=== PATIENT | female | born 1935 | race Caucasian/White ===

== ENCOUNTER 2017-06-13 14:08 | Inpatient (IN) ==
[2017-06-13] MEDS ORDERED: ONDANSETRON 4 MG/2 ML VIAL IV PRN (14:27)
[2017-06-13] MEDS ORDERED: ACETAMINOPHEN 325 MG TABLET PO PRN (14:27)
[2017-06-13] MEDS ORDERED: MORPHINE 2 MG/1 ML SYRINGE IV PRN (14:27)
[2017-06-13] MEDS ORDERED: NALOXONE 0.4 MG/ML VIAL IV PRN (14:27)
[2017-06-13] MEDS ORDERED: ENOXAPARIN 40 MG/0.4 ML SYRINGE SUBCUT SCH (14:30)
[2017-06-13] MEDS ORDERED: NITROGLYCERIN SL 0.4 MG TABLET SL PRN (14:32)
[2017-06-13 16:17] LABS: Basophils % 0.4 % (0.0-0.8); Eosinophils # 0.1 10*3/uL (0.0-0.87); Eosinophils % 1.9 % (0.00-10.9); Hematocrit 20.5 VOL% (35.7-47.0); Immature Granulocytes % 17.4 %; Immature Granulocytes Absolute 0.45 #; Lymphocytes # 1.1 10*3/uL (1.4-4.0); Lymphocytes % 42.2 % (21.3-54.2); Mean Corpuscular HGB Conc 34.1 GM/DL (32-36); Mean Corpuscular Hemoglobin 34 PG (27-34); Mean Platelet Volume 12.9 FL (9.6-12.0); Monocytes # 0.1 10*3/uL (0.11-0.8); Monocytes % 2.3 % (1.7-12.7); NRBC # 0.06 10*3/uL; Neutrophils # 0.9 10*3/uL (1.4-7.4); Neutrophils % 35.8 % (38.7-73.9); Platelet Count 50 T/CUMM (130-400); Red Blood Count 2.07 MC/CUMM (3.8-5.5); Red Cell Distribution Width 16.8 % (9.3-17.3); White Blood Count 2.6 T/CUMM (4-12)
[2017-06-13] MEDS: SODIUM CHLORIDE 0.45% 1,000 ML IV SCH (16:25)
[2017-06-13 16:44] LABS: Albumin 3.6 G/DL (3.4-5.0); Bilirubin,Total 0.9 MG/DL (0.2-1.0); Magnesium 2.3 MG/DL (1.8-2.4); Osmolality,Calculated 276.7 MOS/KG (273-304); Total Protein 6.6 G/DL (6.4-8.3)
[2017-06-13 16:46] LABS: Troponin I Only 0.019 NG/ML (0.00-0.045)
[2017-06-13 16:52] LABS: Platelet Estimate Decreased
[2017-06-13 16:54] LABS: Apearance,Urine CLOUDY (Clear); Bacteria,Urine Occasional /HPF (Few); Bilirubin,Urine Negative (Negative); Blood, Urine Negative (Negative); Glucose,Urine (UA) Negative (Negative); Ketones,Urine Negative (Negative); Nitrite,Urine Negative (Negative); Protein,Urine Negative; Squamous Epithelial Cell,Urine Occasional /HPF (0-10); Urine Color Yellow (Yellow); Urine Specific Gravity 1.009 (1.001-1.035)
[2017-06-13] MEDS ORDERED: SODIUM CHLORIDE 0.9% 250 ML IV PRN (17:37)
--- NOTE | 2017-06-13 17:46 | Family Practice History&Phys ---
Assessment and Plan (1) Symptomatic anemia Status: Acute Assessment and plan: 06/13/2017: IV Protonix has been ordered. Stool guaiac has been ordered. Patient will be typed and matched for 2 units of blood will follow for any further bleeding. GI will be consulted. Anemia studies were pending. Current Visit: Yes (2) Chest pain Status: Acute Assessment and plan: 06/13/2017: The certainly appears atypical and may be related directly or indirectly to her anemia. Cardiac isoenzymes and repeat EKG have been ordered. Current Visit: Yes History of Present Illness Chief complaint: Chest pain and weakness History of present illness: Ms. Neff is a 81 year old female Patient 81-year-old white female was in the office the day of admission with increasing episodes of weakness and chest pain. Patient states these episodes are occurring fairly frequently and she becomes diaphoretic, pale and she develops nausea and left shoulder upper chest pain. Patient says she has had multiple episodes of this since its onset 3 days ago. Patient was noted to be quite pale in the office but she denied seeing any blood in her stools or having any melena. She denies any dyspepsia or dysphagia. She does take Mobic for her arthritic complaints. Patient was found to have a hemoglobin of 7. Patient was admitted for further evaluation and I am certainly concerned about the potential of her having coronary artery disease as well. Home Medications Medication Instructions Recorded Confirmed Type Donepezil [Aricept] 5 mg PO BEDTIME 07/06/15 11/10/16 History Omeprazole 20 mg PO DAILY 07/06/15 11/10/16 History Pitavastatin [Livalo] 2 mg PO DAILY 07/06/15 11/10/16 History Escitalopram [Lexapro] 20 mg PO DAILY 09/16/16 11/10/16 History Tolterodine [Detrol] 2 mg PO BID 09/16/16 11/10/16 History levETIRAcetam [Levetiracetam] 500 mg PO BID 09/16/16 11/10/16 History Calcium Carbonate/Vitamin D3 1 each PO DAILY 09/28/16 11/10/16 History [Caltrate 600 Plus D3 Tablet] Docusate Sodium Cap [Colace Cap] 100 mg PO BID 09/28/16 11/10/16 History Vitamin E 400 unit PO DAILY 09/28/16 11/10/16 History Aspirin [Ecotrin] 81 mg PO DAILY 10/28/16 11/10/16 History Meloxicam [Mobic] 1 tablet PO DAILY 10/28/16 11/10/16 History Polyethylene Glycol Powder 17 gm PO DAILY 10/28/16 11/10/16 History [Miralax] Allergies Allergy/AdvReac Type Severity Reaction Status Date / Time codeine Allergy Intermediate RASH Verified 10/28/16 11:13 adhesive tape AdvReac Intermediate RASH Verified 10/28/16 11:13 latex AdvReac Intermediate BLISTER Verified 06/13/17 15:24 - Constitutional Constitutional: Present: chills, fatigue, weakness. Absent: fever(s) - EENT Eyes: Absent: blurry vision, loss of vision Ears: Absent: decreased hearing, ear pain Nose, mouth and throat: Absent: hoarseness, sinus pressure, sore throat - Cardiovascular Cardiovascular: Present: chest pain at rest, diaphoresis, dyspnea, dyspnea on exertion. Absent: orthopnea, palpitations, PND - Respiratory Respiratory: Present: dyspnea, dyspnea on exertion. Absent: cough, wheezing - Gastrointestinal Gastrointestinal: Present: nausea. Absent: abdominal pain, dyspepsia, dysphagia , hematemesis, hematochezia, melena, vomiting - Genitourinary Genitourinary: Absent: dysuria, urinary frequency, urinary hesitancy - Musculoskeletal Musculoskeletal: Present: back pain (Chronic). Absent: arthralgias - Neurological Neurological: Absent: abnormal gait, confusion, dizziness, focal weakness, numbness, paresthesias - Psychiatric Psychiatric: Present: depression. Absent: anxiety, confusion - Endocrine Endocrine: Present: fatigue. Absent: polydipsia, polyphagia - Hematologic/Lymphatic Hematologic/Lymphatic: Absent: easy bleeding, easy bruising Medical,Surgical,& Family Hx - Medical History Cardio: History of: CAD, Hypertension (STATES NO MEDS O DIAGNOSIS OF IT) Psychological: History of: Depression Neurology: History of: Dementia, Parkinson's Disease, Seizures (no seizure in 4 years) HEENT: History of: Ear Problem, Eye Problem (GLASSES), Dental Problems (PARTIAL) Endocrine: History of: Dyslipidemia, Thyroid Disorder (Daughter denies) Genitourinary: History of: Bladder Problem (INCONTIENCE WEARS DIAPER), Recurring Urinary Tract Infections Gastrointestinal: History of: GERD Musculoskeletal: History of: Musculoskeletal Problems (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) - Surgical History HEENT Surgeries: Surgical HX of: Eye Surgery (CATARACTS) Abdominal Surgeries: Surgical HX of: Colonoscopy, EGD Reproductive Surgeries: Surgical HX of;: Genitourinary Surgery (OVERACTIVE BLADDER) Orthopedic Surgeries: Surgical HX of;: Orthopedic Surgery (ORIF left femur FX RIGHT HUMERUS), Total Hip Replacement (R hip replaced) - Family History Family History: Reports;: Family Diabetes (MOM DAUGHTER), Family Stroke (BROTHER ) Comment Only: Family Heart Disease (PARENTS) - Social History Smoking Status: Never smoker Frequency of Alcohol Use: None Type of Drug Use: None Exam - Constitutional Vitals: Period Temp Pulse Resp BP Sys/Carson Pulse Ox Last 24 Hr 97.3 F 71 18 152/35 99 Exam: General: Objective patient is a well-developed white female was able to give a good history. Patient was noted to be quite pale in color HEENT: Pupils equal and reactive to light. Patent nares and airway, the conjunctiva and her mucous membranes are pale. Neck: No meningismus, adenopathy, thyromegaly. There are no auscultated carotid bruits. Cardiovascular: Regular rhythm. No murmurs or gallops. EKG in the office showed normal sinus rhythm with no acute ST elevation or depression. Chest: Clear to auscultation without rales rhonchi wheezes. Abdomen: Soft nontender to palpation No masses, rebound, guarding or tenderness. Neuro: Cranial nerves intact and DTRs and strength symmetric in all extremities. Dermatologic: No evidence of abnormal lesions or masses. Musculoskeletal: There is no joint swelling or tenderness or deformity. Extremities: There is no calf swelling or tenderness. Results - Labs CBC & BMP: 06/13/17 15:53 06/13/17 15:53 Lab Results: I have reviewed the past 24 hour labs - EKG EKG results: sinus rhythm
[2017-06-13] MEDS: SODIUM CHLORIDE 0.9% 1,000 ML IV SCH (18:05)
[2017-06-13 19:00] LABS: Troponin I Only 0.023 NG/ML (0.00-0.045)
--- NOTE | 2017-06-13 19:03 | XRay Report ---
Single view the chest. Indication: Shortness of breath. The heart is normal in size. The pulmonary vasculature is normal. The lung ybarra are clear. No pneumothorax or pleural effusion. Orthopedic hardware stabilizing a healed fracture of the right proximal humerus. Impression: No acute cardiopulmonary abnormality is seen. PROCEDURE INTERPRETED AT [facility] DEPARTMENT OF RADIOLOGY Final Report Signed by: Dr. Ruth Xie
[2017-06-13 19:34] LABS: Hematocrit 18.3 VOL% (35.7-47.0)
[2017-06-13 19:36] LABS: Hemoglobin 6.2 GM/DL (12.0-16.0)
[2017-06-13 19:52] LABS: Troponin I Only 0.022 NG/ML (0.00-0.045)
[2017-06-13 20:01] LABS: Folate 17.1 NG/ML (5.4-24.0)
[2017-06-13] MEDS: PANTOPRAZOLE 40 MG VIAL IV SCH (21:51)
[2017-06-13] MEDS: DONEPEZIL 5 MG TABLET PO SCH (21:51)
[2017-06-13] MEDS: levETIRAcetam 500 MG TABLET PO SCH (21:51)
[2017-06-13] MEDS: DOCUSATE SODIUM 100 MG CAPSULE PO SCH (21:51)
[2017-06-14 04:57] LABS: Basophils % 0.3 % (0.0-0.8); Eosinophils % 0.9 % (0.00-10.9); Hematocrit 27.7 VOL% (35.7-47.0); Hemoglobin 9.4 GM/DL (12.0-16.0); Immature Granulocytes % 11.3 %; Immature Granulocytes Absolute 0.37 #; Lymphocytes # 1.9 10*3/uL (1.4-4.0); Lymphocytes % 59.1 % (21.3-54.2); Mean Corpuscular HGB Conc 33.9 GM/DL (32-36); Mean Corpuscular Hemoglobin 31 PG (27-34); Mean Corpuscular Volume 90.5 FL (87-102); Mean Platelet Volume 12.2 FL (9.6-12.0); Monocytes # 0.1 10*3/uL (0.11-0.8); Monocytes % 3.4 % (1.7-12.7); NRBC # 0.06 10*3/uL; Neutrophils # 0.8 10*3/uL (1.4-7.4); Red Blood Count 3.06 MC/CUMM (3.8-5.5); Red Cell Distribution Width 17.3 % (9.3-17.3); White Blood Count 3.3 T/CUMM (4-12)
[2017-06-14 05:01] LABS: Platelet Count 35 T/CUMM (130-400)
[2017-06-14 05:27] LABS: Risk Ratio 3.6; VLDL CHOLESTEROL 13.4 MG/DL
[2017-06-14 05:34] LABS: Atypical Lymphocytes Few; Eosinophils 6 % (0-10); Lymphocytes 69 % (20-55); Nucleated Red Blood Cells 6 (0-5); Segmented Neutrophils 24 % (50-85); Total Cells Counted 100
[2017-06-14 05:35] LABS: Hypochromasia 1+; Microcytosis 1+; Ovalocytes Slight; Polychromasia Slight
[2017-06-14 05:36] LABS: Platelet Estimate Decreased
--- NOTE | 2017-06-14 08:25 | Family Practice Progress Note ---
Family Practice - PN: Subj Interval history: Patient states is feeling better this morning. Her hematocrit dropped 16.8% last night and it is back up to 27% this morning. She has not had a bowel movement this morning. Stool guaiac course is pending. Her LDH, ferritin, iron and iron binding capacity are pending for some reason. Patient denies any abdominal pain or any chest pain this morning. Cardiac isoenzymes are negative. Exam (Progress Note) - Constitutional Vitals: Period Temp Pulse Resp BP Sys/Carson Pulse Ox Last 24 Hr 97.1 F-98.4 F 63-72 16-20 98-152/33-62 97-99 Exam: Objective well-developed white female no acute distress. She is sleeping soundly when I entered the room and certainly has no dyspnea at rest. She is able to give good history and tells me she is feeling better. Her color is certainly much improved. Cardiovascular: Heart rate is regular without murmurs or gallops. Respiratory: Lungs clear to auscultation bilaterally. Abdomen: Abdomen soft and nontender to palpation. Results - Labs CBC & BMP: 06/14/17 04:12 06/13/17 15:53 Lab Results: I have reviewed the past 24 hour labs Assessment and Plan (1) Symptomatic anemia Status: Acute Assessment and plan: 06/13/2017: IV Protonix has been ordered. Stool guaiac has been ordered. Patient will be typed and matched for 2 units of blood will follow for any further bleeding. GI will be consulted. Anemia studies were pending. 06/14/2017: Patient's iron, total iron binding capacity ferritin and LDH are pending. Her platelet counts down to 35,000 this morning I am going to ask hematology to see her due to her pancytopenia. Current Visit: Yes (2) Chest pain Status: Acute Assessment and plan: 06/13/2017: The certainly appears atypical and may be related directly or indirectly to her anemia. Cardiac isoenzymes and repeat EKG have been ordered. 06/14/2017: Patient's chest pain has resolved. Cardiac isoenzymes are negative. Will repeat EKG this morning. Current Visit: Yes
--- NOTE | 2017-06-14 08:32 | EKG Report ---
Stationary ECG Study [facility] Test Date: 06/14/2017 8:16:34 AM Pat Name: ELVIS HOLBROOK Department: Room: 296 Gender: F Toe Former: OMER : 1935 Requested by: Riky Horne Order Number: [id number] Reading MD: RICCO JIMENEZ Intervals [place] Rate: 63 P: 60 GA: 188 QRS: 45 QRSD: 93 T: 42 QT: 435 QTc: 442 Interpretive Statements SINUS RHYTHM at 63 bpm ANTEROSEPTAL MYOCARDIAL INFARCTION, OF INDETERMINATE AGE NST, CONSIDER ISCHEMIA Electronically Signed On 06-17-17 12:19:45 CDT by RICCO JIMENEZ [email or web address]
[2017-06-14 08:46] LABS: % Iron Saturation 54.4 % (18-50)
[2017-06-14] MEDS ORDERED: MELOXICAM 7.5 MG TABLET PO SCH (09:00)
[2017-06-14] MEDS ORDERED: PANTOPRAZOLE 40 MG TABLET PO SCH (09:00)
[2017-06-14] MEDS ORDERED: ASPIRIN EC 81 MG TABLET PO SCH (09:00)
[2017-06-14] MEDS: ESCITALOPRAM 10 MG TABLET PO SCH (09:39)
[2017-06-14] MEDS: levETIRAcetam 500 MG TABLET PO SCH ×2 (09:39→21:51)
[2017-06-14] MEDS: DOCUSATE SODIUM 100 MG CAPSULE PO SCH ×2 (09:40→21:51)
[2017-06-14] MEDS: PANTOPRAZOLE 40 MG VIAL IV SCH ×2 (09:41→21:51)
[2017-06-14 11:27] LABS: Hematocrit 29.2 VOL% (35.7-47.0); Hemoglobin 9.9 GM/DL (12.0-16.0)
--- NOTE | 2017-06-14 11:50 | Gastrointestinal Consult Note ---
Assessment and Plan (1) Symptomatic anemia Status: Acute Assessment and plan: 06/14-Low HH on admission with no prior history of anemia or blood transfusion in the past. No overt signs of bleeding. Iron studies noted as below. Obtain prior endoscopy records from endoscopic clinic. Check stools for occult blood. Monitor H&H and transfuse as necessary. Consideration for endoscopic evaluation unable to proceed until platelet count improves. Plan an addendum to followed by Dr. Gay. Current Visit: Yes History of Present Illness Chief complaint: Anemia, atypical chest pain History of present illness: Ms. Neff is a 81 year old female who was admitted to the hospital on yesterday with complaints of weakness and chest pain. Patient is a fair historian therefore information is also obtained from chart review. Patient has a prior history of CAD, hypertension, depression, dementia, Parkinson's, and GERD. Patient states that approximately 3-4 days ago she had an onset of pain in her epigastric region that seem to occur without any precipitating factors. The pain would come and go multiple times a day and will be associated with nausea at times. She also states at times the pain would radiate into her left shoulder. She denies any other associated symptoms with this. Patient presented to the clinic for a checkup and was found at that time to be pale and had lab work drawn. She was found to have a hemoglobin of 7 and was admitted to the hospital for further workup. Patient states that she has not noticed any melena or hematochezia. She did have a couple of episodes of nausea vomiting but denies any coffee-ground or hematemesis. She states she does take Mobic daily for her arthritis. She has a history of GERD and states that she has noted she has had some regurgitation of food after eating. She denies any dysphagia, increased belching or bloating. She denies any significant weight loss. She does not recall being anemic in the past or having a blood transfusion. Iron studies were done and findings noted with iron of 129, TIBC 237, saturation at 54 and ferritin at 444. Her H&H is now following 2 units of packed red blood cells. She is also noted to have a normal MCV at 90 however she does have a low platelet count at 35. BUN/ creatinine ratio is unremarkable at 13. Cardiac enzymes at this time are negative. Patient denies a prior history of anemia in the past and denies requiring blood transfusions. She states that she has had endoscopy done in the past by Dr. Cardenas and at the endoscopic center. Home Medications Medication Instructions Recorded Confirmed Type Donepezil [Aricept] 5 mg PO BEDTIME 07/06/15 11/10/16 History Omeprazole 20 mg PO DAILY 07/06/15 11/10/16 History Pitavastatin [Livalo] 2 mg PO DAILY 07/06/15 11/10/16 History Escitalopram [Lexapro] 20 mg PO DAILY 09/16/16 11/10/16 History Tolterodine [Detrol] 2 mg PO BID 09/16/16 11/10/16 History levETIRAcetam [Levetiracetam] 500 mg PO BID 09/16/16 11/10/16 History Calcium Carbonate/Vitamin D3 1 each PO DAILY 09/28/16 11/10/16 History [Caltrate 600 Plus D3 Tablet] Docusate Sodium Cap [Colace Cap] 100 mg PO BID 09/28/16 11/10/16 History Vitamin E 400 unit PO DAILY 09/28/16 11/10/16 History Aspirin [Ecotrin] 81 mg PO DAILY 10/28/16 11/10/16 History Meloxicam [Mobic] 1 tablet PO DAILY 10/28/16 11/10/16 History Polyethylene Glycol Powder 17 gm PO DAILY 10/28/16 11/10/16 History [Miralax] Allergies Allergy/AdvReac Type Severity Reaction Status Date / Time codeine Allergy Intermediate RASH Verified 10/28/16 11:13 adhesive tape AdvReac Intermediate RASH Verified 10/28/16 11:13 latex AdvReac Intermediate BLISTER Verified 06/13/17 15:24 Medical,Surgical,& Family Hx - Medical History Cardio: History of: CAD, Hypertension (STATES NO MEDS O DIAGNOSIS OF IT) Psychological: History of: Depression Neurology: History of: Dementia, Parkinson's Disease, Seizures (no seizure in 4 years) HEENT: History of: Ear Problem, Eye Problem (GLASSES), Dental Problems (PARTIAL) Endocrine: History of: Dyslipidemia, Thyroid Disorder (Daughter denies) Genitourinary: History of: Bladder Problem (INCONTIENCE WEARS DIAPER), Recurring Urinary Tract Infections Gastrointestinal: History of: GERD Musculoskeletal: History of: Musculoskeletal Problems (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) - Surgical History HEENT Surgeries: Surgical HX of: Eye Surgery (CATARACTS) Abdominal Surgeries: Surgical HX of: Colonoscopy, EGD Reproductive Surgeries: Surgical HX of;: Genitourinary Surgery (OVERACTIVE BLADDER) Orthopedic Surgeries: Surgical HX of;: Orthopedic Surgery (ORIF left femur FX RIGHT HUMERUS), Total Hip Replacement (R hip replaced) - Family History Family History: Reports;: Family Diabetes (MOM DAUGHTER), Family Stroke (BROTHER ) Comment Only: Family Heart Disease (PARENTS) - Social History Smoking Status: Never smoker Frequency of Alcohol Use: None Type of Drug Use: None 12 point system: reviewed and no additional remarkable complaints except as stated - Constitutional Constitutional: Present: as per HPI - EENT Eyes: Present: as per HPI Ears: Present: as per HPI Nose, mouth and throat: Present: as per HPI - Cardiovascular Cardiovascular: Present: as per HPI, chest pain at rest - Respiratory Respiratory: Present: as per HPI - Gastrointestinal Gastrointestinal: Present: as per HPI, nausea, vomiting - Genitourinary Genitourinary: Present: as per HPI - Musculoskeletal Musculoskeletal: Present: as per HPI - Neurological Neurological: Present: as per HPI - Psychiatric Psychiatric: Present: as per HPI - Endocrine Endocrine: Present: as per HPI - Hematologic/Lymphatic Hematologic/Lymphatic: Present: as per HPI Exam - Constitutional Vitals: Period Temp Pulse Resp BP Sys/Carson Pulse Ox Last 24 Hr 97.1 F-98.4 F 63-72 16-20 98-152/33-62 97-99 General appearance: normal weight, no acute distress - Head Head exam: Present: normal inspection, normocephalic - Eye Eye exam: Present: other (Lids and conjunctivae are unremarkable). Absent: scleral icterus - ENT ENT exam: Present: normal exam, normal oropharynx - Neck Neck exam: Present: normal inspection - Respiratory Respiratory exam: Present: clear to auscultation bilaterally. Absent: rales, rhonchi, wheezes - Cardiovascular Cardiovascular exam: Present: regular rate and rhythm. Absent: diastolic murmur , JVD, systolic murmur - GI/Abdominal GI/Abdominal exam: Present: normal bowel sounds, soft. Absent: ascites, distended, mass, organomegaly, tenderness - Extremities Exam Extremities exam: Present: normal inspection, full ROM - Back Exam Back exam: Present: normal inspection - Neurological Exam Neurological exam: Present: alert, oriented X3 - Psychiatric Psychiatric exam: Present: normal affect, normal mood - Skin Skin exam: Present: normal color, warm, dry Results - Labs CBC & BMP: 06/14/17 11:16 06/13/17 15:53 Lab Results: I have reviewed the past 24 hour labs
[2017-06-14] MEDS: SODIUM CHLORIDE 0.45% 1,000 ML IV SCH (14:03)
--- NOTE | 2017-06-14 16:37 | Cardiology Consult Note ---
Jasvir Jenkins Lesley, MARGARETTE, am scribing for, and in the presence of, Jaylon Pollock MD 16:31. Assessment and Plan - Time spent with patient Time spent with patient: Greater than 30 minutes (Record review, assessment, and documentation) (1) Atypical chest pain Status: Acute Assessment and plan: 1. 81-year-old WF known to me with hypertension, dyslipidemia, trivial coronary artery disease a heart cath in 2006, negative myocardial scan May 2014, presents with 1 month of increasing usually dyspnea on exertion with nausea and vomiting last couple of days found to have severe pancytopenia improved clinically after receiving blood transfusion. 2. She reports nonspecific bilateral shoulder discomfort when she goes to the bathroom, which does not sound like angina "she rubs them for me for a minute and goes away". 3. Patient on Protonix 4. Do not suspect ACS or heart failure, and symptoms are likely related to her severe anemia. 5. Check echocardiogram Current Visit: Yes (2) Symptomatic anemia Status: Acute Assessment and plan: SEE PLAN LISTED BELOW Current Visit: Yes (3) Hyperlipidemia Status: Chronic Assessment and plan: SEE PLAN LISTED BELOW Current Visit: No (4) Hypertension Status: Chronic Assessment and plan: SEE PLAN LISTED BELOW Current Visit: No Qualifiers: Hypertension type: essential hypertension Qualified Code(s): I10 - Essential (primary) hypertension (5) CAD (coronary artery disease) Status: Chronic Assessment and plan: SEE PLAN LISTED BELOW Current Visit: Yes (6) Pancytopenia Status: Acute Assessment and plan: SEE PLAN LISTED BELOW Current Visit: Yes History of Present Illness - Data of Consult Patient: known to practice within the last 3 years Consult date: 06/14/17 Requesting Physician: Grupo Robin Primary care physician: Grupo Robin - Consult Narrative Reason for consult: weakness, chest pain History of present illness: FLIGHT RADIO OFFICER: Dr. Pollock Ms. Neff is a 81 year old female, for progressive episodes of weakness and chest pain. The patient reports that for the last month she is experience nausea vomiting. She denies hematemesis, coffee-ground emesis, melena, and hematochezia. She reports that she has mostly been vomiting semi-digested food. She reports regular bowel movements. She does complain of severe weakness after bowel movement and pain across the top of bilateral shoulders. She reports a "cramping" sensation that is relieved with massage and in time it passes. The patient denies pain to shoulders or chest pain with exertion. She reports that this only occurs during the weak episode after a bowel movement. She denies shortness of breath, orthopnea, PND and does admit snoring. She has never had a sleep study. The patient was admitted to telemetry with anemia, GI was consulted, as well as cardiology. Past medical history significant for CAD, hyperlipidemia, depression, syncope, frequent falls, anxiety, borderline hypertension(denies taking medications). Past surgical history positive for ORIF of right hip, hysterectomy, right carotid endarterectomy, appendectomy, cholecystectomy, tonsillectomy, and adenoidectomy, shoulder surgery. Family history positive for CAD, stroke, diabetes, and cancer. The patient denies personal history of cancer. The patient denies any history of smoking, alcohol use, and illicit drug use. The patient does have a history of left heart cath done in 2006, she denies PCI. Medical records indicate 20% left main stenosis in September 2006. Records indicate negative myocardial scan done May 2014. The patient was seen lying in bed today. She states she does not ambulate due to frequent falls, and uses a wheelchair for mobility. She was admitted with a hemoglobin of 6.2 and a hematocrit of 18.3. She received 2 units of packed red blood cells, and her H&H improved to 9.4 and 27. Leukopenia noted, white blood cells 3000. Thrombocytopenia with platelets 35,000. Creatinine 1.2, glucose 120, lactic acid 2.2. Troponins cycled and remained negative. Lipid profile reveals LDL 110. Urinalysis positive for leukocytes and culture obtained. Despite her severe anemia, vital signs have remained stable without hypotension or tachycardia. EKG reveals sinus rhythm, rate in the 60s-70s. Chest x-ray unremarkable for acute cardiopulmonary abnormality. Stool for occult blood is pending. IMPRESSION/PLAN: 1. ATYPICAL CHEST PAIN - Troponins negative, EKG shows inferior lateral ST depression. 2. ANEMIA - s/p transfusion 2uPRBCs, GI consult pending, abnormal anemia work up. 3. CAD - [facility] 2006 trivial 20% left main stenosis 4. HYPERLIPIDEMIA - continue Livalo, LDL 110. 5. HYPERTENSION - initiate low dose beta cassandra. 6. PANCYTOPENIA - recommend Hematology consult. CC: Grupo Robin MD - Home Medications and Allergies Home Medications: Home Medications Medication Instructions Recorded Confirmed Type Donepezil [Aricept] 5 mg PO BEDTIME 07/06/15 06/14/17 History Omeprazole 20 mg PO DAILY 07/06/15 06/14/17 History Escitalopram [Lexapro] 20 mg PO DAILY 09/16/16 06/14/17 History Tolterodine [Detrol] 2 mg PO BID 09/16/16 06/14/17 History levETIRAcetam [Levetiracetam] 500 mg PO BID 09/16/16 06/14/17 History Calcium Carbonate/Vitamin D3 1 each PO DAILY 09/28/16 06/14/17 History [Caltrate 600 Plus D3 Tablet] Docusate Sodium Cap [Colace Cap] 100 mg PO BID PRN 09/28/16 06/14/17 History Vitamin E 400 unit PO DAILY 09/28/16 06/14/17 History Aspirin [Ecotrin] 81 mg PO DAILY 10/28/16 06/14/17 History Meloxicam [Mobic] 7.5 mg PO DAILY 10/28/16 06/14/17 History Polyethylene Glycol Powder 17 gm PO DAILY PRN 10/28/16 06/14/17 History [Miralax] HYDROcodone/ACETAMIN 7.5-325 7.5 mg PO Q8H PRN 06/14/17 06/14/17 History [[place] 7.5-325] traMADol TAB [Ultram] 50 mg PO TID PRN 06/14/17 06/14/17 History Allergies/Adverse Reactions: Allergies Allergy/AdvReac Type Severity Reaction Status Date / Time codeine Allergy Intermediate RASH Verified 10/28/16 11:13 adhesive tape AdvReac Intermediate RASH Verified 10/28/16 11:13 latex AdvReac Intermediate BLISTER Verified 06/13/17 15:24 - Constitutional Constitutional: Present: frequent falls, weakness. Absent: chills, daytime sleepiness, excessive sweating - EENT Eyes: Absent: blurry vision Nose, mouth and throat: Absent: dysphagia, epistaxis, headache(s) - Cardiovascular Cardiovascular: Present: chest pain at rest, dyspnea on exertion, radiating jaw , neck or arm pain, palpitations. Absent: chest pain with activity, edema, orthopnea, PND - Respiratory Respiratory: Present: dyspnea on exertion, snoring. Absent: cough, dyspnea, hemoptysis - Gastrointestinal Gastrointestinal: Present: heartburn, nausea, vomiting. Absent: abdominal pain , coffee ground emesis, constipation, cramping, diarrhea, dyspepsia, hematemesis , hematochezia, melena - Genitourinary Genitourinary: Absent: difficulty urinating, dysuria, hematuria - Musculoskeletal Musculoskeletal: Present: arthralgias - Neurological Neurological: Present: abnormal gait, frequent falls. Absent: abnormal speech, behavioral changes, confusion - Psychiatric Psychiatric: Absent: anxiety, depression - Endocrine Endocrine: Present: fatigue, polyuria. Absent: cold intolerance, heat intolerance - Hematologic/Lymphatic Hematologic/Lymphatic: Absent: easy bleeding Medical,Surgical,& Family Hx - Medical History Cardio: History of: CAD, Hypertension (STATES NO MEDS O DIAGNOSIS OF IT) Psychological: History of: Depression Neurology: History of: Dementia, Parkinson's Disease, Seizures (no seizure in 4 years) HEENT: History of: Ear Problem, Eye Problem (GLASSES), Dental Problems (PARTIAL) Endocrine: History of: Dyslipidemia, Thyroid Disorder (Daughter denies) Genitourinary: History of: Bladder Problem (INCONTIENCE WE[employer] DIAPER), Recurring Urinary Tract Infections Gastrointestinal: History of: GERD Musculoskeletal: History of: Musculoskeletal Problems (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) - Surgical History Cardiac Surgeries: Sugical HX of: Cardiac Catheterization, Carotid Endarterectomy HEENT Surgeries: Surgical HX of: Eye Surgery (CATARACTS), Tonsilectomy & Adenoidectomy Abdominal Surgeries: Surgical HX of: Cholecystectomy, Colonoscopy, EGD Reproductive Surgeries: Surgical HX of;: Genitourinary Surgery (OVERACTIVE BLADDER), Hysterectomy Orthopedic Surgeries: Surgical HX of;: Orthopedic Surgery (ORIF left femur FX RIGHT HUMERUS), Total Hip Replacement (R hip replaced) - Family History Family History: Reports;: Family Diabetes (MOM DAUGHTER), Family Stroke (BROTHER ) Comment Only: Family Heart Disease (PARENTS) - Social History Smoking Status: Never smoker Frequency of Alcohol Use: None Type of Drug Use: None Lives With:: Children Functional capacity: wheelchair bound Physical Examination Vital Signs Temp Pulse Resp BP Pulse Ox 97.3 F L 71 18 152/35 99 06/13/17 15:24 06/13/17 15:24 06/13/17 15:24 06/13/17 15:24 06/13/17 15:24 Exam: General: Appears well with no apparent distress. Pleasant and cooperative. Appears comfortable. HEENT: PERRL, normocephalic, atraumatic. Mucous membranes moist. No jaundice noted. Conjunctiva moist and clear, sclerae anicteric. Neck: No JVD/HJR, no thyromegaly or lymphadenopathy noted. No carotid bruit appreciated. Cardiac: Regular rate and rhythm. No murmur rub or gallop. PMI is nondisplaced. Lungs: Clear to auscultation without accessory muscle use to assist the respiratory pattern. No oxygen required. Abdomen: Soft, bowel sounds normoactive. Tenderness over mid epigastric region , and nondistended. No abdominal bruit or thrill noted. No masses noted. Musculoskeletal: No fluid collection. Decreased range of motion is noted. Extremities: No clubbing, cyanosis noted. No edema noted. Upper extremity pulses 2+. Lower extremity pulses 2+. Capillary refill less than 3 seconds. Skin: Warm and dry. No unusual lesions or rashes. No skin breakdown appreciated. Neuro: Awake, alert and oriented 3. Moves all extremities well without hemiparesis or paralysis. No essential tremor is appreciated. Result/EKG - Labs CBC & BMP: 06/14/17 11:16 06/13/17 15:53 Lab Results: I have reviewed the past 24 hour labs Labs: Laboratory Results - last 24 hr 06/13/17 06/13/17 06/13/17 15:45 15:53 15:53 WBC 2.6 L RBC 2.07 L Hgb 7.0 L Hct 20.5 L MCV 99.0 MCH 34 MCHC 34.1 RDW 16.8 Plt Count 50 L MPV 12.9 H Neut % (Auto) 35.8 L Lymph % (Auto) 42.2 [place] % (Auto) 2.3 Eos % (Auto) 1.9 Baso % (Auto) 0.4 Neut # (Auto) 0.9 L Lymph # (Auto) 1.1 L [place] # (Auto) 0.1 L Eos # (Auto) 0.1 Baso # (Auto) 0.0 Total Counted Immature Gran % 17.4 Nucleated RBC % 2.3 Immature Gran # 0.45 Segmented Neutrophils Lymphocytes Monocytes Eosinophils Nucleated RBCs Nucleated RBCs # 0.06 Atypical Lymphocytes Platelet Estimate Decreased Immature Plt Fraction 0.0 Polychromasia Hypochromasia Microcytosis Ovalocytes Sodium 138 Potassium 4.0 Chloride 102 Carbon Dioxide 28 Anion Gap 12.0 BUN 16 Creatinine 1.20 H GFR Calculation 43 BUN/Creatinine Ratio 13.00 Glucose 120 H Calculated Osmolality 276.7 Lactic Acid Calcium 9.0 Magnesium 2.3 Iron TIBC % Saturation Ferritin Total Bilirubin 0.90 AST 10 ALT 12 L Alkaline Phosphatase 73 Total Creatine Kinase CK-MB (CK-2) Troponin I B-Natriuretic Peptide Total Protein 6.6 Albumin 3.6 Globulin 3.0 Albumin/Globulin Ratio 1.2 Triglycerides Cholesterol LDL Cholesterol VLDL Cholesterol HDL Cholesterol Heart Disease Risk Ratio Vitamin B12 Folate Urine Color Urine Appearance Urine pH Ur Specific [place] Urine Protein Urine Glucose (UA) Urine Ketones Urine Blood Urine Nitrate Urine Bilirubin Urine Urobilinogen Urine Leukocytes Ur Squamous Epith Cells Urine Bacteria Ur Culture Indicated? Blood Type Cancelled Antibody Screen Cancelled Crossmatch See Detail Blood Bank Comment Cancelled 06/13/17 06/13/17 06/13/17 15:53 15:53 15:53 WBC RBC Hgb Hct MCV MCH MCHC RDW Plt Count MPV Neut % (Auto) Lymph % (Auto) [place] % (Auto) Eos % (Auto) Baso % (Auto) Neut # (Auto) Lymph # (Auto) [place] # (Auto) Eos # (Auto) Baso # (Auto) Total Counted Immature Gran % Nucleated RBC % Immature Gran # Segmented Neutrophils Lymphocytes Monocytes Eosinophils Nucleated RBCs Nucleated RBCs # Atypical Lymphocytes Platelet Estimate Immature Plt Fraction Polychromasia Hypochromasia Microcytosis Ovalocytes Sodium Potassium Chloride Carbon Dioxide Anion Gap BUN Creatinine GFR Calculation BUN/Creatinine Ratio Glucose Calculated Osmolality Lactic Acid Calcium Magnesium Iron TIBC % Saturation Ferritin Total Bilirubin AST ALT Alkaline Phosphatase Total Creatine Kinase 14 L CK-MB (CK-2) < 1.0 Troponin I 0.019 B-Natriuretic Peptide 29 Total Protein Albumin Globulin Albumin/Globulin Ratio Triglycerides Cholesterol LDL Cholesterol VLDL Cholesterol HDL Cholesterol Heart Disease Risk Ratio Vitamin B12 Folate Urine Color Urine Appearance Urine pH Ur Specific [place] Urine Protein Urine Glucose (UA) Urine Ketones Urine Blood Urine Nitrate Urine Bilirubin Urine Urobilinogen Urine Leukocytes Ur Squamous Epith Cells Urine Bacteria Ur Culture Indicated? Blood Type B POSITIVE Antibody Screen Negative Crossmatch Blood Bank Comment 06/13/17 06/13/17 06/13/17 16:36 17:42 17:42 WBC RBC Hgb Hct MCV MCH MCHC RDW Plt Count MPV Neut % (Auto) Lymph % (Auto) [place] % (Auto) Eos % (Auto) Baso % (Auto) Neut # (Auto) Lymph # (Auto) [place] # (Auto) Eos # (Auto) Baso # (Auto) Total Counted Immature Gran % Nucleated RBC % Immature Gran # Segmented Neutrophils Lymphocytes Monocytes Eosinophils Nucleated RBCs Nucleated RBCs # Atypical Lymphocytes Platelet Estimate Immature Plt Fraction Polychromasia Hypochromasia Microcytosis Ovalocytes Sodium Potassium Chloride Carbon Dioxide Anion Gap BUN Creatinine GFR Calculation BUN/Creatinine Ratio Glucose Calculated Osmolality Lactic Acid Calcium Magnesium Iron TIBC % Saturation Ferritin Total Bilirubin AST ALT Alkaline Phosphatase Total Creatine Kinase 15 L CK-MB (CK-2) < 1.0 Troponin I 0.023 B-Natriuretic Peptide Total Protein Albumin Globulin Albumin/Globulin Ratio Triglycerides Cholesterol LDL Cholesterol VLDL Cholesterol HDL Cholesterol Heart Disease Risk Ratio Vitamin B12 376 Folate 17.1 Urine Color Yellow Urine Appearance Cloudy Urine pH 6.0 Ur Specific [place] 1.009 Urine Protein Negative Urine Glucose (UA) Negative Urine Ketones Negative Urine Blood Negative Urine Nitrate Negative Urine Bilirubin Negative Urine Urobilinogen 4.0 H Urine Leukocytes Small H Ur Squamous Epith Cells Occasional Urine Bacteria Occasional Ur Culture Indicated? Results to follow Blood Type Antibody Screen Crossmatch Blood Bank Comment 06/13/17 06/13/17 06/13/17 19:08 19:08 19:08 WBC RBC Hgb 6.2 L* Hct 18.3 L MCV MCH MCHC RDW Plt Count MPV Neut % (Auto) Lymph % (Auto) [place] % (Auto) Eos % (Auto) Baso % (Auto) Neut # (Auto) Lymph # (Auto) [place] # (Auto) Eos # (Auto) Baso # (Auto) Total Counted Immature Gran % Nucleated RBC % Immature Gran # Segmented Neutrophils Lymphocytes Monocytes Eosinophils Nucleated RBCs Nucleated RBCs # Atypical Lymphocytes Platelet Estimate Immature Plt Fraction Polychromasia Hypochromasia Microcytosis Ovalocytes Sodium Potassium Chloride Carbon Dioxide Anion Gap BUN Creatinine GFR Calculation BUN/Creatinine Ratio Glucose Calculated Osmolality Lactic Acid 2.2 H Calcium Magnesium Iron TIBC % Saturation Ferritin Total Bilirubin AST ALT Alkaline Phosphatase Total Creatine Kinase 16 L CK-MB (CK-2) < 1.0 Troponin I 0.022 B-Natriuretic Peptide Total Protein Albumin Globulin Albumin/Globulin Ratio Triglycerides Cholesterol LDL Cholesterol VLDL Cholesterol HDL Cholesterol Heart Disease Risk Ratio Vitamin B12 Folate Urine Color Urine Appearance Urine pH Ur Specific [place] Urine Protein Urine Glucose (UA) Urine Ketones Urine Blood Urine Nitrate Urine Bilirubin Urine Urobilinogen Urine Leukocytes Ur Squamous Epith Cells Urine Bacteria Ur Culture Indicated? Blood Type Antibody Screen Crossmatch Blood Bank Comment 06/14/17 06/14/17 06/14/17 04:01 04:01 04:12 WBC RBC Hgb Hct MCV MCH MCHC RDW Plt Count MPV Neut % (Auto) Lymph % (Auto) [place] % (Auto) Eos % (Auto) Baso % (Auto) Neut # (Auto) Lymph # (Auto) [place] # (Auto) Eos # (Auto) Baso # (Auto) Total Counted Immature Gran % Nucleated RBC % Immature Gran # Segmented Neutrophils Lymphocytes Monocytes Eosinophils Nucleated RBCs Nucleated RBCs # Atypical Lymphocytes Platelet Estimate Immature Plt Fraction Polychromasia Hypochromasia Microcytosis Ovalocytes Sodium Potassium Chloride Carbon Dioxide Anion Gap BUN Creatinine GFR Calculation BUN/Creatinine Ratio Glucose Calculated Osmolality Lactic Acid Calcium Magnesium Iron 129 TIBC 237 L % Saturation 54.4 H Ferritin 444.1 H Total Bilirubin AST ALT Alkaline Phosphatase Total Creatine Kinase CK-MB (CK-2) Troponin I B-Natriuretic Peptide Total Protein Albumin Globulin Albumin/Globulin Ratio Triglycerides 67 Cholesterol 169 LDL Cholesterol 110.0 VLDL Cholesterol 13.4 HDL Cholesterol 47 Heart Disease Risk Ratio 3.60 Vitamin B12 Folate Urine Color Urine Appearance Urine pH Ur Specific [place] Urine Protein Urine Glucose (UA) Urine Ketones Urine Blood Urine Nitrate Urine Bilirubin Urine Urobilinogen Urine Leukocytes Ur Squamous Epith Cells Urine Bacteria Ur Culture Indicated? Blood Type Antibody Screen Crossmatch Blood Bank Comment 06/14/17 04:12 WBC 3.3 L RBC 3.06 L D Hgb 9.4 L D Hct 27.7 L MCV 90.5 MCH 31 MCHC 33.9 RDW 17.3 Plt Count 35 L* D MPV 12.2 H Neut % (Auto) 25.0 L Lymph % (Auto) 59.1 H [place] % (Auto) 3.4 Eos % (Auto) 0.9 Baso % (Auto) 0.3 Neut # (Auto) 0.8 L Lymph # (Auto) 1.9 [place] # (Auto) 0.1 L Eos # (Auto) 0.0 Baso # (Auto) 0.0 Total Counted 100 Immature Gran % 11.3 Nucleated RBC % 1.8 Immature Gran # 0.37 Segmented Neutrophils 24 L Lymphocytes 69 H Monocytes 1 L Eosinophils 6 Nucleated RBCs 6 H Nucleated RBCs # 0.06 Atypical Lymphocytes Few Platelet Estimate Decreased Immature Plt Fraction 0.0 Polychromasia Slight Hypochromasia 1+ Microcytosis 1+ Ovalocytes Slight Sodium Potassium Chloride Carbon Dioxide Anion Gap BUN Creatinine GFR Calculation BUN/Creatinine Ratio Glucose Calculated Osmolality Lactic Acid Calcium Magnesium Iron TIBC % Saturation Ferritin Total Bilirubin AST ALT Alkaline Phosphatase Total Creatine Kinase CK-MB (CK-2) Troponin I B-Natriuretic Peptide Total Protein Albumin Globulin Albumin/Globulin Ratio Triglycerides Cholesterol LDL Cholesterol VLDL Cholesterol HDL Cholesterol Heart Disease Risk Ratio Vitamin B12 Folate Urine Color Urine Appearance Urine pH Ur Specific [place] Urine Protein Urine Glucose (UA) Urine Ketones Urine Blood Urine Nitrate Urine Bilirubin Urine Urobilinogen Urine Leukocytes Ur Squamous Epith Cells Urine Bacteria Ur Culture Indicated? Blood Type Antibody Screen Crossmatch Blood Bank Comment - Diagnostic Findings Procedure: Chest x-ray: report reviewed by me - EKG EKG results: interpreted by me, sinus rhythm Maris Jenkins Randall Scott, MD, personally performed the services described in this documentation, ascribed by Mariia Tay NP in my presence, and it is both accurate and complete [id number] .
[2017-06-14] MEDS: SODIUM CHLORIDE 0.9% 1,000 ML IV SCH (17:05)
--- NOTE | 2017-06-14 17:48 | ECHO Report ---
Suzie Neff Exam Date: 06/14/2017 13:29 Referring Physician: Technologist: flori Tapia ARDMS, RVT Age: 81 Ht (in): 67 Wt (lb): 143 Gender: F Exam Location: [facility], [place] Echo Indications: Chest pain, unspecified, Anemia BP: 139 / 60 HR: 63 Rhythm: Sinus Technical Quality: IMPRESSIONS Normal chamber sizes 1+ concentric LVH Normal LV systolic function with ejection fraction is been be 65% without segmental wall motion normality 1-2+ mitral regurgitation 1+ tricuspid regurgitation with RVSP 40 mmHg plus RAP MEASUREMENTS (Male / Female) Normal Values 2D ECHO LV Diastolic Diameter PLAX 3.8 cm 4.2 - 5.9 / 3.9 - 5.3 cm LV Systolic Diameter PLAX 2.2 cm LV Fractional Shortening PLAX 41.8 % IVS Diastolic Thickness 1.1 cm 0.6 - 1.0 / 0.6 - 0.9 cm LVPW Diastolic Thickness 0.7 cm 0.6 - 1.0 / 0.6 - 0.9 cm RV Internal Dim ED PLAX 3.4 cm Aortic Root Diameter 2.1 cm LA Systolic Diameter LX 3.3 cm 3.0 - 4.0 / 2.7 - 3.8 cm DOPPLER TR Peak Velocity 315.0 cm/s TR Peak Gradient 39.7 mmHg FINDINGS Left Ventricle Normal left ventricular cavity size. Normal left ventricular wall thickness. Left ventricular ejection fraction is estimated at 65%. Right Ventricle The right ventricle is normal in size and function. Right Atrium The right atrium is normal in size. Left Atrium The left atrium is normal in size. Mitral Valve Mitral valve sclerosis. Morphologically normal mitral valve. Moderate mitral valve regurgitation. Aortic Valve Morphologically normal aortic valve without significant sclerosis or stenosis. There is no aortic regurgitation. Tricuspid Valve Morphologically normal tricuspid valve. Mild tricuspid valve regurgitation. Tricuspid regurgitation velocities suggest a PAP of 50 mmHg. Pulmonic Valve Morphologically normal pulmonic valve without significant stenosis. There is no pulmonic regurgitation. Pericardium Normal pericardium without effusion. Aorta Normal ascending aorta dimension. Jaylon Pollock (Electronically Signed) Final Date: 14 June 2017 17:47
[2017-06-14] MEDS: CARVEDILOL 3.125 MG TABLET PO SCH (21:51)
[2017-06-14] MEDS: DONEPEZIL 5 MG TABLET PO SCH (21:51)
[2017-06-15] MEDS: SODIUM CHLORIDE 0.9% 1,000 ML IV SCH ×2 (05:44→19:06)
[2017-06-15 05:53] LABS: Basophils % 0.3 % (0.0-0.8); Eosinophils # 0.1 10*3/uL (0.0-0.87); Eosinophils % 3.3 % (0.00-10.9); Hematocrit 26.2 VOL% (35.7-47.0); Hemoglobin 8.8 GM/DL (12.0-16.0); Immature Granulocytes % 11.5 %; Immature Granulocytes Absolute 0.35 #; Lymphocytes # 1.8 10*3/uL (1.4-4.0); Lymphocytes % 59.2 % (21.3-54.2); Mean Corpuscular HGB Conc 33.6 GM/DL (32-36); Mean Corpuscular Hemoglobin 31 PG (27-34); Mean Corpuscular Volume 91.6 FL (87-102); Mean Platelet Volume 12.1 FL (9.6-12.0); Monocytes # 0.1 10*3/uL (0.11-0.8); Monocytes % 2.3 % (1.7-12.7); NRBC # 0.03 10*3/uL; Neutrophils # 0.7 10*3/uL (1.4-7.4); Neutrophils % 23.4 % (38.7-73.9); Red Blood Count 2.86 MC/CUMM (3.8-5.5); Red Cell Distribution Width 17.1 % (9.3-17.3)
[2017-06-15 06:04] LABS: Platelet Count 37 T/CUMM (130-400)
[2017-06-15 06:30] LABS: Atypical Lymphocytes Few; Band Neutrophils 2 % (0-10); Eosinophils 1 % (0-10); Hypochromasia 1+; Lymphocytes 70 % (20-55); Microcytosis 1+; Ovalocytes Slight; Platelet Estimate Decreased; Segmented Neutrophils 24 % (50-85); Total Cells Counted 100
[2017-06-15] MEDS ORDERED: POLYETHYLENE GLYCOL POWDER 17 GM PACK PO PRN (06:37)
[2017-06-15] MEDS: SODIUM CHLORIDE 0.45% 1,000 ML IV SCH (06:43)
[2017-06-15 06:54] LABS: Albumin 2.9 G/DL (3.4-5.0); Bilirubin,Total 1.2 MG/DL (0.2-1.0); Calcium 8.5 MG/DL (8.5-10.1); Osmolality,Calculated 285.8 MOS/KG (273-304); Total Protein 5.2 G/DL (6.4-8.3)
--- NOTE | 2017-06-15 07:20 | Family Practice Progress Note ---
Family Practice - PN: Subj Interval history: Patient states she is feeling much better this morning had a good night sleep. Her hematocrit this morning is 26.2, platelet count 35,000 and her white count is 3000 with some atypical lymphocytes. Patient has not had any fever or chills and states she is not having any abdominal pain. She did finally provide a stool specimen and it was heme negative. Hematology has been consulted. Exam (Progress Note) - Constitutional Vitals: Period Temp Pulse Resp BP Sys/[place] Pulse Ox Last 24 Hr 97 F-98.4 F 61-67 16-20 133-169/60-71 94-98 Exam: Objective well-developed white female no acute distress. She states she is feeling much better this morning and certainly looks the part. Her color is certainly much improved. Cardiovascular: Heart rate is regular without murmurs or gallops. Respiratory: Lungs clear to auscultation bilaterally. Abdomen: Abdomen soft and nontender to palpation. There is no palpable hepatosplenomegaly or masses. Results - Labs CBC & BMP: 06/15/17 04:24 06/15/17 04:24 Lab Results: I have reviewed the past 24 hour labs Assessment and Plan (1) Symptomatic anemia Status: Acute Assessment and plan: 06/13/2017: IV Protonix has been ordered. Stool guaiac has been ordered. Patient will be typed and matched for 2 units of blood will follow for any further bleeding. GI will be consulted. Anemia studies were pending. 06/14/2017: Patient's iron, total iron binding capacity ferritin and LDH are pending. Her platelet counts down to 35,000 this morning I am going to ask hematology to see her due to her pancytopenia. 06/15/2017: Patient is symptomatically improved with transfusion. Hematology has been consult for further evaluation of her pancytopenia. Current Visit: Yes (2) Chest pain Status: Acute Assessment and plan: 06/13/2017: The certainly appears atypical and may be related directly or indirectly to her anemia. Cardiac isoenzymes and repeat EKG have been ordered. 06/14/2017: Patient's chest pain has resolved. Cardiac isoenzymes are negative. Will repeat EKG this morning. 06/15/2017: Patient's chest pain has resolved. Current Visit: Yes
--- NOTE | 2017-06-15 07:53 | EKG Report ---
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
--- NOTE | 2017-06-15 08:02 | Oncology Consult Note ---
History of Present Illness History of present illness: Ms. Neff is a 81 year old female That I was asked to see because of low blood counts. Today her white cell count is 3000. She has a platelet count of 37,000 with a mean platelet volume is elevated at 12.1. Her absolute neutrophil count is 700. Her hemoglobin is 8.8 and falling. Additional blood tests: JANET: negative. Blood type B+ B12 376, Folate 17.1 Iron 129, TIBC 237 Her home meds that can affect blood counts include: Aricept can cause hemolytic anemia and ecchymoses Omeprazole can cause lupus erythematosus signs and symptoms, blood dyscrasias and leukopenia and thrombocytopenia Lexapro can cause altered platelet function and abnormal bleeding. Levetiracetam can cause leukopenia, neutropenia, pancytopenia, agranulocytosis and thrombocytopenia Mobic can cause anemia and blood dyscrasias. I have ordered a haptoglobin, una and a reticulocyte count. She was admitted with weakness and chest pain. She has a history of mild coronary artery disease and a history of hypertension. Also history of GERD and a history of some type of seizure disorder for which she takes anticonvulsants. Her review of systems is negative for any previous definite blood dyscrasias or bleeding disorders. She has been told she is anemic in the past but she does not recall ever hearing any thing about low platelets or white cells. ROS Gen.: Negative for chronic fever, night sweats or weight loss. Eyes: No history of chronic disease, infections or visual loss. ENT: No history of chronic infections, epistaxis, chronic sore throat Lungs: No history of asthma, emphysema, hemoptysis, chronic pleurisy or long- term or chronic infections Cardiovascular: See present illness. GI: No history of upper or lower GI bleeding, melena, dysphagia, odynophagia, liver disease, gallbladder disease or pancreatic disease. : No history of kidney stones, chronic kidney infections or hematuria. Musculoskeletal: She has a history of mild to moderate arthritis. No history of chronic bone or joint pain or focal muscle atrophy or bone or joint deformity. Neurologic: She is vague about her history of seizures. No history of strokes or focal weakness. Psychiatric: She evidently has some memory problems. No history of chronic psychiatric illness or psychiatric medications. Lymphatic: No history of significant or long-term lymphadenopathy Hematologic: See present illness. Skin: No history of chronic skin infections or rashes or significant skin lesions. Physical examination: General: She appears her stated age. She does not appear to be in any acute distress but I am not certain about the accuracy of her memory. Eyes: Normal lids and conjunctivae. ENT: Her oral mucosa and pharynx are normal. Her hearing appears normal. Teeth are normal. Neck: Her trachea is midline. She has no neck masses. Her thyroid appears normal. Cardiovascular: Her heart rhythm is regular without murmur, gallop or rub. There is no jugular venous distention, clubbing or cyanosis. I see no splinter hemorrhages. Lungs: Her chest moves symmetrically with respiration. I hear no rubs, rales or rhonchi and the expiratory phase of respiration is normal. No chest wall tenderness. Breasts: No breast masses or skin lesions. Normal by inspection. Abdomen: No abdominal masses, organomegaly, distention or hepatomegaly or splenomegaly. No significant tenderness. Musculoskeletal: No severe arthritis or focal muscle atrophy or bone or joint deformity. The tip of the index finger on 1 of her hands is shortened. Neurologic: Cranial nerves II through XII are intact. There are no focal neurologic deficits. Nodes: No cervical, supraclavicular, axillary or submandibular adenopathy. Skin: No petechiae. Nailbeds are normal. I would suspect that this patient's thrombocytopenia is most likely medication related. I have listed the medications that she is taking that need to be considered for discontinuation. I have also listed the additional lab tests to check for possible additional causes of thrombocytopenia and anemia and leukopenia. Also consider CT of the abdomen and pelvis with contrast to look for splenomegaly or possible intra-abdominal abnormalities. Thank you for consulting me. Home Medications Medication Instructions Recorded Confirmed Type Donepezil [Aricept] 5 mg PO BEDTIME 07/06/15 06/14/17 History Omeprazole 20 mg PO DAILY 07/06/15 06/14/17 History Escitalopram [Lexapro] 20 mg PO DAILY 09/16/16 06/14/17 History Tolterodine [Detrol] 2 mg PO BID 09/16/16 06/14/17 History levETIRAcetam [Levetiracetam] 500 mg PO BID 09/16/16 06/14/17 History Calcium Carbonate/Vitamin D3 1 each PO DAILY 09/28/16 06/14/17 History [Caltrate 600 Plus D3 Tablet] Docusate Sodium Cap [Colace Cap] 100 mg PO BID PRN 09/28/16 06/14/17 History Vitamin E 400 unit PO DAILY 09/28/16 06/14/17 History Aspirin [Ecotrin] 81 mg PO DAILY 10/28/16 06/14/17 History Meloxicam [Mobic] 7.5 mg PO DAILY 10/28/16 06/14/17 History Polyethylene Glycol Powder 17 gm PO DAILY PRN 10/28/16 06/14/17 History [Miralax] HYDROcodone/ACETAMIN 7.5-325 7.5 mg PO Q8H PRN 06/14/17 06/14/17 History [Sulphur 7.5-325] traMADol TAB [Ultram] 50 mg PO TID PRN 06/14/17 06/14/17 History Allergies Allergy/AdvReac Type Severity Reaction Status Date / Time codeine Allergy Intermediate RASH Verified 10/28/16 11:13 adhesive tape AdvReac Intermediate RASH Verified 10/28/16 11:13 latex AdvReac Intermediate BLISTER Verified 06/13/17 15:24 Medical,Surgical,& Family Hx - Medical History Cardio: History of: CAD, Hypertension (STATES NO MEDS O DIAGNOSIS OF IT) Psychological: History of: Depression Neurology: History of: Dementia, Parkinson's Disease, Seizures (no seizure in 4 years) HEENT: History of: Ear Problem, Eye Problem (GLASSES), Dental Problems (PARTIAL) Endocrine: History of: Dyslipidemia, Thyroid Disorder (Daughter denies) Genitourinary: History of: Bladder Problem (INCONTIENCE WEARS DIAPER), Recurring Urinary Tract Infections Gastrointestinal: History of: GERD Musculoskeletal: History of: Musculoskeletal Problems (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) - Surgical History Cardiac Surgeries: Sugical HX of: Cardiac Catheterization, Carotid Endarterectomy HEENT Surgeries: Surgical HX of: Carotid Endarterectomy, Eye Surgery (CATARACTS) , Tonsilectomy & Adenoidectomy Abdominal Surgeries: Surgical HX of: Cholecystectomy, Colonoscopy, EGD Reproductive Surgeries: Surgical HX of;: Genitourinary Surgery (OVERACTIVE BLADDER), Hysterectomy Orthopedic Surgeries: Surgical HX of;: Orthopedic Surgery (ORIF left femur FX RIGHT HUMERUS), Total Hip Replacement (R hip replaced) - Family History Family History: Reports;: Family Diabetes (MOM DAUGHTER), Family Stroke (BROTHER ) Comment Only: Family Heart Disease (PARENTS) - Social History Smoking Status: Never smoker Frequency of Alcohol Use: None Type of Drug Use: None Exam - Constitutional Vitals: Period Temp Pulse Resp BP Sys/Carson Pulse Ox Last 24 Hr 97 F-98.4 F 61-67 16-20 133-169/60-71 94-98 Results - Labs CBC & BMP: 06/15/17 04:24 06/15/17 04:24
[2017-06-15] MEDS: PANTOPRAZOLE 40 MG VIAL IV SCH ×2 (08:39→21:49)
[2017-06-15] MEDS ORDERED: ESCITALOPRAM 10 MG TABLET PO SCH (09:00)
[2017-06-15] MEDS: DOCUSATE SODIUM 100 MG CAPSULE PO SCH ×2 (09:20→21:40)
[2017-06-15] MEDS: CARVEDILOL 3.125 MG TABLET PO SCH ×2 (09:20→21:48)
[2017-06-15] MEDS: levETIRAcetam 500 MG TABLET PO SCH (09:20)
[2017-06-15] MEDS: ESCITALOPRAM 10 MG TABLET PO SCH (09:20)
[2017-06-15] MEDS: CALCIUM (CARBONATE)/VITAMIN D 600 MG-400 UNIT TABLET PO SCH (09:20)
[2017-06-15] MEDS: TOLTERODINE 2 MG TABLET PO SCH ×2 (09:23→21:48)
--- NOTE | 2017-06-15 11:39 | Gastrointestinal Progress Note ---
Assessment and Plan (1) Symptomatic anemia Status: Acute Assessment and plan: 06/15-H&H and platelets noted as below. Stools are negative for occult blood. Hematology workup noted. Plan an addendum to follow Dr. Gay. 06/14-Low HH on admission with no prior history of anemia or blood transfusion in the past. No overt signs of bleeding. Iron studies noted as below. Obtain prior endoscopy records from endoscopic clinic. Check stools for occult blood. Monitor H&H and transfuse as necessary. Consideration for endoscopic evaluation unable to proceed until platelet count improves. Plan an addendum to followed by Dr. Gay. Current Visit: Yes Gastroenterology - PN: Subj Interval history: CC: Anemia Patient is seen, awake and alert lying in bed. States she slept very well last night and ate a good breakfast this morning is feeling much better overall. She denies any abdominal pain, nausea or vomiting. Her H&H is noted 05/20 today with platelets 37,000. Her stools are negative for occult blood. Dr. Ferreira is seen and consulted as well as workup has began for her pancytopenia. Patient is noted as well to be on several medications that could contribute to this as well. Abdomen soft, nontender. ROS: Denies shortness of breath or chest pain Exam (Progress Note) - Constitutional Vitals: Period Temp Pulse Resp BP Sys/Carson Pulse Ox Last 24 Hr 96.2 F-98.6 F 59-67 16-20 138-169/60-71 94-98 - Other Additional findings: General appearance: normal weight, no acute distress - Head Head exam: Present: normal inspection, normocephalic - Eye Eye exam: Present: other (Lids and conjunctivae are unremarkable). Absent: scleral icterus - ENT ENT exam: Present: normal exam, normal oropharynx - Neck Neck exam: Present: normal inspection - Respiratory Respiratory exam: Present: clear to auscultation bilaterally. Absent: rales, rhonchi, wheezes - Cardiovascular Cardiovascular exam: Present: regular rate and rhythm. Absent: diastolic murmur , JVD, systolic murmur - GI/Abdominal GI/Abdominal exam: Present: normal bowel sounds, soft. Absent: ascites, distended, mass, organomegaly, tenderness - Extremities Exam Extremities exam: Present: normal inspection, full ROM - Back Exam Back exam: Present: normal inspection - Neurological Exam Neurological exam: Present: alert, oriented X3 - Psychiatric Psychiatric exam: Present: normal affect, normal mood - Skin Skin exam: Present: normal color, warm, dry Results - Labs CBC & BMP: 06/15/17 04:24 06/15/17 04:24 Lab Results: I have reviewed the past 24 hour labs
--- NOTE | 2017-06-15 17:32 | Cardiology Progress Note ---
Jasvir Jenkins Lesley, MARGARETTE, am scribing for, and in the presence of, Jaylon Pollock MD 17:31. Assessment and Plan - Time spent with patient Time spent with patient: Greater than 30 minutes (Record review, assessment, and documentation) (1) Atypical chest pain Status: Resolved Assessment and plan: Initial impression recommendations: 1. 81-year-old WF known to me with hypertension, dyslipidemia, trivial coronary artery disease a heart cath in 2006, negative myocardial scan May 2014, presents with 1 month of increasing usually dyspnea on exertion with nausea and vomiting last couple of days found to have severe pancytopenia improved clinically after receiving blood transfusion. 2. She reports nonspecific bilateral shoulder discomfort when she goes to the bathroom, which does not sound like angina "she rubs them for me for a minute and goes away". 3. Patient on Protonix 4. Do not suspect ACS or heart failure, and symptoms are likely related to her severe anemia. 5. Check echocardiogram June 15, 2017: 1. Ms. Burgess is still fatigued but is doing better clinically 2. Do not suspect acute coronary syndrome or cardiac etiology to her symptoms. 3. Echocardiogram showed normal LV function with EF 65% 4. We will sign off, please reconsult if needed. Current Visit: Yes (2) Symptomatic anemia Status: Acute Assessment and plan: SEE PLAN LISTED BELOW Current Visit: Yes (3) Hyperlipidemia Status: Chronic Assessment and plan: SEE PLAN LISTED BELOW Current Visit: No (4) Hypertension Status: Chronic Assessment and plan: SEE PLAN LISTED BELOW Current Visit: No Qualifiers: Hypertension type: essential hypertension Qualified Code(s): I10 - Essential (primary) hypertension (5) CAD (coronary artery disease) Status: Chronic Assessment and plan: SEE PLAN LISTED BELOW Current Visit: Yes (6) Pancytopenia Status: Acute Assessment and plan: SEE PLAN LISTED BELOW Current Visit: Yes Cardiology - PN: Subj Interval history: REGULATORY COMPLIANCE OFFICER: Dr. Pollock Ms. Neff is a 81 year old female, for progressive episodes of weakness and chest pain. The patient reports that for the last month she is experience nausea vomiting. She denies hematemesis, coffee-ground emesis, melena, and hematochezia. She reports that she has mostly been vomiting semi-digested food. She reports regular bowel movements. She does complain of severe weakness after bowel movement and pain across the top of bilateral shoulders. She reports a "cramping" sensation that is relieved with massage and in time it passes. The patient denies pain to shoulders or chest pain with exertion. She reports that this only occurs during the weak episode after a bowel movement. She denies shortness of breath, orthopnea, PND and does admit snoring. She has never had a sleep study. The patient was admitted to telemetry with anemia, GI was consulted, as well as cardiology. Past medical history significant for CAD, hyperlipidemia, depression, syncope, frequent falls, anxiety, borderline hypertension(denies taking medications). Past surgical history positive for ORIF of right hip, hysterectomy, right carotid endarterectomy, appendectomy, cholecystectomy, tonsillectomy, and adenoidectomy, shoulder surgery. Family history positive for CAD, stroke, diabetes, and cancer. The patient denies personal history of cancer. The patient denies any history of smoking, alcohol use, and illicit drug use. The patient does have a history of left heart cath done in 2006, she denies PCI. Medical records indicate 20% left main stenosis in September 2006. Records indicate negative myocardial scan done May 2014. The patient was seen lying in bed today. She states she does not ambulate due to frequent falls, and uses a wheelchair for mobility. She was admitted with a hemoglobin of 6.2 and a hematocrit of 18.3. She received 2 units of packed red blood cells, and her H&H improved to 9.4 and 27. Leukopenia noted, white blood cells 3000. Thrombocytopenia with platelets 35,000. Creatinine 1.2, glucose 120, lactic acid 2.2. Troponins cycled and remained negative. Lipid profile reveals LDL 110. Urinalysis positive for leukocytes and culture obtained. Despite her severe anemia, vital signs have remained stable without hypotension or tachycardia. EKG reveals sinus rhythm, rate in the 60s-70s. Chest x-ray unremarkable for acute cardiopulmonary abnormality. Stool for occult blood is pending. 2016: The patient did well overnight. She is currently asymptomatic, no complaints of atypical chest pain or dyspnea. Hemoglobin stable s/p blood transfusion. Symptoms not likely related to ACS, and improved. No obvious signs of active bleeding. IMPRESSION/PLAN: 1. ATYPICAL CHEST PAIN - Troponins negative, EKG shows inferior lateral ST depression, angina resolved. 2. ANEMIA - stable s/p transfusion 2uPRBCs, GI consulted, no obvious signs of active bleeding. 3. CAD - [facility] 2006 trivial 20% left main stenosis, angina resolved. 4. HYPERLIPIDEMIA - continue Livalo, LDL 110. 5. HYPERTENSION - tolerating low dose beta cassandra. 6. PANCYTOPENIA - Hematology consulted, medications being adjusted. CC: Grupo Robin MD Exam (Progress Note) - Constitutional Vitals: Period Temp Pulse Resp BP Sys/Carson Pulse Ox Last 24 Hr 96.2 F-98.6 F 59-67 16-20 138-169/62-71 94-98 Exam: General: Appears improved, no apparent distress. Pleasant and cooperative. Appears comfortable. HEENT: PERRL, normocephalic, atraumatic. Mucous membranes moist. No jaundice noted. Conjunctiva moist and clear, sclerae anicteric. Neck: No JVD/HJR, no thyromegaly or lymphadenopathy noted. No carotid bruit appreciated. Cardiac: Regular rate and rhythm. No murmur rub or gallop. PMI is nondisplaced. Lungs: Clear to auscultation without accessory muscle use to assist the respiratory pattern. No oxygen in use. Abdomen: Soft, bowel sounds normoactive. Nontender and nondistended. No abdominal bruit or thrill noted. No masses noted. Musculoskeletal: No fluid collection. Decreased range of motion is noted, wheelchair/bed bound. Extremities: No clubbing, cyanosis noted. No edema noted. Upper extremity pulses 2+. Lower extremity pulses 2+. Capillary refill less than 3 seconds. Skin: Warm and dry. No unusual lesions or rashes. No skin breakdown appreciated. Neuro: Awake, alert and oriented 3. Moves all extremities well without hemiparesis or paralysis. No essential tremor is appreciated. Result/EKG - Labs CBC & BMP: 06/15/17 04:24 06/15/17 04:24 Lab Results: I have reviewed the past 24 hour labs Labs: Laboratory Results - last 24 hr 06/14/17 06/14/17 06/15/17 04:01 12:57 04:22 WBC RBC Hgb Hct MCV MCH MCHC RDW Plt Count MPV Neut % (Auto) Lymph % (Auto) [place] % (Auto) Eos % (Auto) Baso % (Auto) Neut # (Auto) Lymph # (Auto) [place] # (Auto) Eos # (Auto) Baso # (Auto) Total Counted Immature Gran % Nucleated RBC % Immature Gran # Segmented Neutrophils Band Neutrophils Lymphocytes Monocytes Eosinophils Nucleated RBCs # Atypical Lymphocytes Platelet Estimate Immature Plt Fraction Hypochromasia Microcytosis Ovalocytes Absolute Retic Percent Retic Retic Hgb Equivalent Haptoglobin 90.0 Sodium Potassium Chloride Carbon Dioxide Anion Gap BUN Creatinine GFR Calculation BUN/Creatinine Ratio Glucose Calculated Osmolality Calcium Total Bilirubin AST ALT Alkaline Phosphatase Lactate Dehydrogenase 151 Total Protein Albumin Globulin Albumin/Globulin Ratio JANET (IgG-AHG) Negative JANET, Polyspecific Negative 06/15/17 06/15/17 06/15/17 04:24 04:24 10:29 WBC 3.0 L RBC 2.86 L Hgb 8.8 L Hct 26.2 L MCV 91.6 MCH 31 MCHC 33.6 RDW 17.1 Plt Count 37 L* MPV 12.1 H Neut % (Auto) 23.4 L Lymph % (Auto) 59.2 H [place] % (Auto) 2.3 Eos % (Auto) 3.3 Baso % (Auto) 0.3 Neut # (Auto) 0.7 L Lymph # (Auto) 1.8 [place] # (Auto) 0.1 L Eos # (Auto) 0.1 Baso # (Auto) 0.0 Total Counted 100 Immature Gran % 11.5 Nucleated RBC % 1.0 Immature Gran # 0.35 Segmented Neutrophils 24 L Band Neutrophils 2 Lymphocytes 70 H Monocytes 3 Eosinophils 1 Nucleated RBCs # 0.03 Atypical Lymphocytes Few Platelet Estimate Decreased Immature Plt Fraction 0.0 Hypochromasia 1+ Microcytosis 1+ Ovalocytes Slight Absolute Retic 0.1 Percent Retic 2.8 H Retic Hgb Equivalent 33.2 Haptoglobin Sodium 144 Potassium 4.0 Chloride 111 H Carbon Dioxide 27 Anion Gap 10.0 BUN 12 Creatinine 0.90 GFR Calculation 61 BUN/Creatinine Ratio 13.00 Glucose 105 Calculated Osmolality 285.8 Calcium 8.5 Total Bilirubin 1.20 H AST 11 ALT 10 L Alkaline Phosphatase 59 Lactate Dehydrogenase Total Protein 5.2 L Albumin 2.9 L Globulin 2.3 Albumin/Globulin Ratio 1.2 JANET (IgG-AHG) JANET, Polyspecific - EKG EKG results: interpreted by me, sinus rhythm I, Jaylon Pollock MD, personally performed the services described in this documentation, ascribed by Vincent,Mariia, [employer] in my presence, and it is both accurate and complete 731 .
--- NOTE | 2017-06-15 18:07 | CT Report ---
CT of the abdomen and pelvis with intravenous and oral contrast. Indication: Thrombocytopenia. Axial images were obtained with sagittal and coronal 2-D reconstructions. No previous studies. 100 cc Omni 350. The heart is enlarged. There is no pericardial or pleural effusion. There are areas of scarring and atelectasis within the lung bases. Mild nonspecific groundglass infiltrates are present at the base is well. The liver is normal in size and density. There is minimal intrahepatic biliary ductal dilatation. The common bile duct measures 10 mm, the gallbladder has been removed. No pancreatic abnormality is seen. The spleen is normal in size and configuration. There is an accessory splenic nodule. There is left renal atrophy. There is a right extrarenal pelvis. No ureteral obstruction. The urinary bladder presents a normal appearance. There is mixed plaque present within a normal caliber abdominal aorta. The gastric contour is normal. It contains considerable food material. The loops of small intestine are not dilated. The terminal ileum presents a normal appearance. The appendix is not discretely seen. The colon is not dilated. There are numerous diverticuli in the distal colon without evidence of active diverticulitis. There is considerable pelvic streak artifact from bilateral hip hardware. No free air or free fluid is seen within the peritoneal cavity. Impression: 1. Cardiomegaly. 2. Scarring, atelectasis, and nonspecific groundglass infiltrates within the lung bases. 3. Mild prominence of the extrahepatic ducts, probably due to the postcholecystectomy state. 4. The spleen is not enlarged. 5. Diverticulosis without findings of diverticulitis. 6. Left renal atrophy. Right extrarenal pelvis. The CT exam was performed using one or more of the following dose reduction techniques: Automated exposure control, adjustment of the mA and/or kV according to patient size, or use of iterative reconstruction technique. PROCEDURE INTERPRETED AT [facility] DEPARTMENT OF RADIOLOGY Final Report Signed by: Dr. Ruth Xie
[2017-06-15] MEDS ORDERED: DONEPEZIL 5 MG TABLET PO SCH (21:00)
[2017-06-16 05:12] LABS: Basophils % 0.3 % (0.0-0.8); Eosinophils # 0.1 10*3/uL (0.0-0.87); Eosinophils % 3.2 % (0.00-10.9); Hematocrit 25.6 VOL% (35.7-47.0); Hemoglobin 8.7 GM/DL (12.0-16.0); Immature Granulocytes % 12.4 %; Immature Granulocytes Absolute 0.43 #; Lymphocytes # 1.8 10*3/uL (1.4-4.0); Lymphocytes % 50.9 % (21.3-54.2); Mean Corpuscular Hemoglobin 31 PG (27-34); Mean Corpuscular Volume 91.8 FL (87-102); Monocytes # 0.1 10*3/uL (0.11-0.8); Monocytes % 2.3 % (1.7-12.7); NRBC # 0.03 10*3/uL; Neutrophils # 1.1 10*3/uL (1.4-7.4); Neutrophils % 30.9 % (38.7-73.9); Red Blood Count 2.79 MC/CUMM (3.8-5.5); Red Cell Distribution Width 16.3 % (9.3-17.3); White Blood Count 3.5 T/CUMM (4-12)
[2017-06-16 05:23] LABS: Platelet Count 37 T/CUMM (130-400)
--- NOTE | 2017-06-16 06:09 | Family Practice Progress Note ---
Family Practice - PN: Subj Interval history: Patient states she is feeling some better and has not had any further chest pain. Her hematocrit is down slightly at 25.6. Platelet count is 37,000. Her haptoglobin was normal and her reticulocyte count was slightly elevated. I have stopped the potentially offending mechanisms as suggested by Dr. Ferreira. Patient wants to go home if at all possible but I will discuss her with Dr. Ferreira first. Exam (Progress Note) - Constitutional Vitals: Period Temp Pulse Resp BP Sys/Carson Pulse Ox Last 24 Hr 96.2 F-98.6 F 58-64 14-20 141-226/64-86 94-98 Exam: Objective well-developed white female no acute distress. She denies any chest pain this morning. Cardiovascular: Heart rate is regular without murmurs or gallops. Respiratory: Lungs clear to auscultation bilaterally. Abdomen: Abdomen soft and nontender to palpation. There is no palpable hepatosplenomegaly or masses. Results - Labs CBC & BMP: 06/16/17 04:59 06/15/17 04:24 Lab Results: I have reviewed the past 24 hour labs Assessment and Plan (1) Symptomatic anemia Status: Acute Assessment and plan: 06/13/2017: IV Protonix has been ordered. Stool guaiac has been ordered. Patient will be typed and matched for 2 units of blood will follow for any further bleeding. GI will be consulted. Anemia studies were pending. 06/14/2017: Patient's iron, total iron binding capacity ferritin and LDH are pending. Her platelet counts down to 35,000 this morning I am going to ask hematology to see her due to her pancytopenia. 06/15/2017: Patient is symptomatically improved with transfusion. Hematology has been consult for further evaluation of her pancytopenia. 06/16/2017: Patient certainly feeling much better but her blood counts are staying about the same. Current Visit: Yes (2) Chest pain Status: Acute Assessment and plan: 06/13/2017: The certainly appears atypical and may be related directly or indirectly to her anemia. Cardiac isoenzymes and repeat EKG have been ordered. 06/14/2017: Patient's chest pain has resolved. Cardiac isoenzymes are negative. Will repeat EKG this morning. 06/15/2017: Patient's chest pain has resolved. 06/16/2017: Patient's chest pain has resolved. Current Visit: Yes (3) Pancytopenia Status: Acute Assessment and plan: 06/16/2017: Dr. Ferreira's opinion is that this is probably medication related and her medications have been changed. Current Visit: Yes
[2017-06-16 06:23] LABS: Band Neutrophils 2 % (0-10); Hypochromasia 1+; Lymphocytes 65 % (20-55); Microcytosis 1+; Nucleated Red Blood Cells 1 (0-5); Platelet Estimate Decreased; Segmented Neutrophils 31 % (50-85); Total Cells Counted 100
[2017-06-16 06:24] LABS: Ovalocytes Slight
[2017-06-16 06:25] LABS: Atypical Lymphocytes Few
[2017-06-16] MEDS: SODIUM CHLORIDE 0.45% 1,000 ML IV SCH (06:55)
--- NOTE | 2017-06-16 08:22 | EKG Report ---
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
--- NOTE | 2017-06-16 09:40 | Oncology Progress Note ---
Oncology Subjective PN Interval history: The patient's CINDI is negative. Her spleen is not enlarged on CT scan. 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 I think the reasonable thing to do right now is to hold some of her medications and see if her platelet count will rise. If this does not occur then we may have to consider therapeutic measures to raise her platelet count. If she continues to have thrombocytopenia, feel free to send her to me for an office visit to assess her further. We would be considering whether or not to place her on corticosteroids to see if her platelet count might rise in response to that. Exam - Constitutional Vitals: Period Temp Pulse Resp BP Sys/Carson Pulse Ox Last 24 Hr 96.2 F-98.6 F 58-64 14-18 141-226/64-86 95-98 Results - Labs CBC & BMP: 06/16/17 04:59 06/15/17 04:24
[2017-06-16] MEDS: CALCIUM (CARBONATE)/VITAMIN D 600 MG-400 UNIT TABLET PO SCH (10:03)
[2017-06-16] MEDS: CARVEDILOL 3.125 MG TABLET PO SCH (10:03)
[2017-06-16] MEDS: DOCUSATE SODIUM 100 MG CAPSULE PO SCH (10:03)
[2017-06-16] MEDS: PANTOPRAZOLE 40 MG VIAL IV SCH (10:03)
[2017-06-16] MEDS: TOLTERODINE 2 MG TABLET PO SCH (10:03)
[2017-06-16] MEDS: SODIUM CHLORIDE 0.9% 1,000 ML IV SCH (11:37)
[2017-06-16 12:23] VITALS: BP 142/62
--- NOTE | 2017-06-16 12:43 | Discharge Summary ---
Hospital Course - Hospital Course Hospital Course: Patient 81-year-old white female who presented to the office on day of admission with weakness and some chest pain. Patient was noted to have prominent pallor of her conjunctivae mucous membranes. I admitted her to my services and she was noted to be quite anemic on admission. Patient was given emergent trans-fusion and cardiac isoenzymes and EKG were obtained. She had no evidence of myocardial ischemia and after transfusion she was feeling much better. Patient was noted to have pancytopenia with low platelet count and low white blood count. She was seen in consultation by Dr. Иван Ferreira who felt that her pancytopenia may be medication related. He did recommend cessation of some of these medications and recommend repeating her platelet count next week. Patient had no evidence of bleeding and her hematocrit remained fairly stable. She preferred going home for the weekend and will be discharged today and I will follow in the office next week for repeat CBC. Diagnosis - Discharge Diagnosis (1) Symptomatic anemia Status: Acute (2) Chest pain Status: Acute (3) Pancytopenia Status: Acute Discharge Plan - Discharge Data Disposition: Disch To Home/Self Care Condition at Discharge: Stable Discharge Diet: advance to your usual diet Activity: resume usual activities as tolerated Hygiene: no restrictions Weight Bearing at Discharge: full weight bearing Contact your physician if you experience:: fever over 101, Shortness of breath - Discharge Medications New Carvedilol [Coreg] 3.125 mg PO BID tablet Cefuroxime Tab [Ceftin] 500 mg PO BID #14 tablet Nitroglycerin Sl Tab [Nitrostat] 0.4 mg SL Q5M PRN #25 tablet PRN Reason: Chest Pain Acetaminophen Tab [Tylenol Tab] 650 mg PO Q6H PRN tablet PRN Reason: Fever > 100.4 Or Headache Docusate Sodium Cap [Colace Cap] 100 mg PO BID capsule Continue Docusate Sodium Cap [Colace Cap] 100 mg PO BID PRN PRN Reason: Constipation Calcium Carbonate/Vitamin D3 [Caltrate 600 Plus D3 Tablet] 1 each PO DAILY Tolterodine [Detrol] 2 mg PO BID HYDROcodone/ACETAMIN 7.5-325 [Gerald 7.5-325] 7.5 mg PO Q8H PRN PRN Reason: Pain Moderate (4-7) Polyethylene Glycol Powder [Miralax] 17 gm PO DAILY PRN PRN Reason: Constipation Discontinued Omeprazole 20 mg PO DAILY Donepezil [Aricept] 5 mg PO BEDTIME levETIRAcetam [Levetiracetam] 500 mg PO BID Escitalopram [Lexapro] 20 mg PO DAILY Vitamin E 400 unit PO DAILY traMADol TAB [Ultram] 50 mg PO TID PRN PRN Reason: Pain Mild To Moderate (1-7) Meloxicam [Mobic] 7.5 mg PO DAILY Aspirin [Ecotrin] 81 mg PO DAILY - Follow Up or Referral - Forms/Instructions Exam - Constitutional Vitals: Period Temp Pulse Resp BP Sys/Carson Pulse Ox Last 24 Hr 97.6 F-98.6 F 58-64 14-20 141-226/56-86 95-97 Exam: Objective well-developed white female no acute distress. She denies any chest pain this morning. Cardiovascular: Heart rate is regular without murmurs or gallops. Respiratory: Lungs clear to auscultation bilaterally. Abdomen: Abdomen soft and nontender to palpation. There is no palpable hepatosplenomegaly or masses. Discharge Results Procedures and tests throughout hospitalization: Pending Orders 06/14/17 19:00 Occult Blood, Stool Routine Labs on day of discharge: Labs from last 24 hours 06/16/17 06/15/17 04:59 10:29 WBC 3.5 L RBC 2.79 L Hgb 8.7 L Hct 25.6 L MCV 91.8 MCH 31 MCHC 34.0 RDW 16.3 Plt Count 37 L* Neut % (Auto) 30.9 L Lymph % (Auto) 50.9 [place] % (Auto) 2.3 Eos % (Auto) 3.2 Baso % (Auto) 0.3 Neut # (Auto) 1.1 L Lymph # (Auto) 1.8 [place] # (Auto) 0.1 L Eos # (Auto) 0.1 Baso # (Auto) 0.0 Total Counted 100 Immature Gran % 12.4 Nucleated RBC % 0.9 Immature Gran # 0.43 Segmented Neutrophils 31 L Band Neutrophils 2 Lymphocytes 65 H Monocytes 2 Nucleated RBCs 1 Nucleated RBCs # 0.03 Atypical Lymphocytes Few Platelet Estimate Decreased Immature Plt Fraction 0.0 Hypochromasia 1+ Microcytosis 1+ Ovalocytes Slight CINDI Screen Negative (<1:160) Hematocrit remains a bit low at 25.6. Platelet count 37,000 noted DS: Provider Date of admission: 06/13/17 14:52 Primary care physician: Grupo Robin MD Attending physician on admission: Grupo Robin MD Consults: 06/13/17 14:27 Consult to Case Mgmt/Social Srvs [CONS] Routine Reason for Case Mgmt/Social Srvs: Discharge Planning 06/13/17 14:30 Consult to Physician [CONS] Routine Comment: Consulting Provider: Cardiology - [facility] Person Notified: Allegra Date Notified: 06/14/17 Time Notified: 07:45 06/13/17 15:38 Consult to Dietitian [CONS] Routine Reason for Dietitian: Other 06/13/17 17:40 Consult to Physician [CONS] Routine Comment: Consulting Provider: Eric Gay Consult to Specialist Group: Gastroenterology Person Notified: Leonard Date Notified: 06/14/17 Time Notified: 09:15 06/14/17 08:21 Consult to Physician [CONS] Routine Comment: decreased platlet count Consulting Provider: [facility] Person Notified: Yee Date Notified: 06/14/17 Time Notified: 09:15 Consult Notification Comment: Hanna lobato Discharging clinician: Grupo Robin MD Expected date of discharge: 06/16/17
== END 2017-06-16 15:53 | disposition home or self-care (01) | DRG 313 ==
LOC: N.TELEN 14:52
PROVIDERS: ADMIT Family Medicine; ATTEND Family Medicine

== ENCOUNTER 2019-03-09 21:15 | Inpatient (IN) ==
[2019-03-09 22:27] LABS: Basophils % 0.4 % (0.0-0.8); Eosinophils # 0.1 10*3/uL (0.0-0.87); Eosinophils % 1.9 % (0.00-10.9); Immature Granulocytes % 14.6 %; Immature Granulocytes Absolute 0.38 #; Lymphocytes # 0.9 10*3/uL (1.4-4.0); Lymphocytes % 33.5 % (21.3-54.2); Mean Corpuscular HGB Conc 30.1 GM/DL (32-36); Mean Corpuscular Volume 85.2 FL (87-102); Monocytes % 22.7 % (1.7-12.7); NRBC # 0.07 10*3/uL; Neutrophils % 26.9 % (38.7-73.9); Red Blood Count 1.83 MC/CUMM (3.8-5.5); Red Cell Distribution Width 19.2 % (9.3-17.3); White Blood Count 2.6 T/CUMM (4-12)
[2019-03-09 22:30] LABS: Hematocrit 15.6 VOL% (35.7-47.0); Hemoglobin 4.7 GM/DL (12.0-16.0)
[2019-03-09 22:31] LABS: Platelet Count 9 T/CUMM (130-400)
[2019-03-09 22:43] LABS: Bilirubin,Total 0.7 MG/DL (0.2-1.0); Calcium 8.7 MG/DL (8.5-10.1); Osmolality,Calculated 280.4 MOS/KG (273-304); Total Protein 5.4 G/DL (6.4-8.3)
[2019-03-09 22:54] LABS: Apearance,Urine CLEAR (Clear); Bacteria,Urine Occasional /HPF (Few); Bilirubin,Urine Negative (Negative); Blood, Urine Negative (Negative); Glucose,Urine (UA) Negative (Negative); Ketones,Urine Negative (Negative); Mucus,Urine Few /LPF (Occasional); Nitrite,Urine Negative (Negative); Protein,Urine Negative; RBC,Urine 1 /HPF (0-4); Squamous Epithelial Cell,Urine Occasional /HPF (0-10); Urine Color Yellow (Yellow); Urine Urobilinogen < 2.0 EU/DL (0.2-1.0); WBC,Urine 2 /HPF (0-6)
[2019-03-09 23:23] LABS: Anisocytosis 1+; Band Neutrophils 1 % (0-10); Hypochromasia 1+; Lymphocytes 56 % (20-55); Metamyelocytes 1 %; Microcytosis 1+; Nucleated Red Blood Cells 2 (0-5); Platelet Estimate Decreased; Reactive Lymphocytes Few; Segmented Neutrophils 31 % (50-85); Total Cells Counted 100
[2019-03-10] MEDS ORDERED: ONDANSETRON 4 MG/2 ML VIAL IV PRN (00:27)
[2019-03-10] MEDS ORDERED: ACETAMINOPHEN 325 MG TABLET PO PRN (00:27)
[2019-03-10] MEDS ORDERED: SODIUM CHLORIDE 0.9% 1,000 ML IV PRN (01:19)
[2019-03-10] MEDS ORDERED: diphenhydrAMINE 50 MG/1 ML VIAL IV ONE (01:22)
[2019-03-10] MEDS ORDERED: ACETAMINOPHEN 500 MG TABLET PO ONE (01:24)
[2019-03-10] MEDS ORDERED: FUROSEMIDE 40 MG/4 ML VIAL IV ONE ×2 (01:25→15:30)
[2019-03-10 03:22] LABS: Eosinophils # 0.1 10*3/uL (0.0-0.87); Eosinophils % 2.3 % (0.00-10.9); Immature Granulocytes % 12.1 %; Immature Granulocytes Absolute 0.32 #; Lymphocytes # 0.9 10*3/uL (1.4-4.0); Lymphocytes % 34.8 % (21.3-54.2); Mean Corpuscular HGB Conc 30.4 GM/DL (32-36); Mean Corpuscular Volume 85.5 FL (87-102); Monocytes % 20.5 % (1.7-12.7); NRBC # 0.06 10*3/uL; Neutrophils % 30.3 % (38.7-73.9); Red Blood Count 1.73 MC/CUMM (3.8-5.5); Red Cell Distribution Width 18.8 % (9.3-17.3); White Blood Count 2.6 T/CUMM (4-12)
[2019-03-10 03:27] LABS: Hemoglobin 4.5 GM/DL (12.0-16.0)
[2019-03-10 03:28] LABS: Hematocrit 14.8 VOL% (35.7-47.0)
[2019-03-10 03:29] LABS: Platelet Count 16 T/CUMM (130-400)
[2019-03-10 03:36] LABS: Bilirubin,Total 0.7 MG/DL (0.2-1.0); Calcium 8.7 MG/DL (8.5-10.1); Osmolality,Calculated 280.4 MOS/KG (273-304); Total Protein 5.5 G/DL (6.4-8.3)
[2019-03-10 07:04] LABS: Total Cells Counted 100
[2019-03-10 07:05] LABS: Acanthocytes Few; Anisocytosis 1+; Elliptocytes 1+; Hypochromasia 2+; Macrocytosis 1+; Ovalocytes 1+; Platelet Estimate Decreased
[2019-03-10 07:11] LABS: Atypical Lymphocytes Few
[2019-03-10] MEDS: DOCUSATE SODIUM 100 MG CAPSULE PO SCH ×2 (09:02→20:56)
[2019-03-10] MEDS: PANTOPRAZOLE 40 MG TABLET PO SCH (09:02)
[2019-03-10] MEDS ORDERED: diphenhydrAMINE 50 MG/1 ML VIAL ONE (11:33)
[2019-03-10] MEDS ORDERED: NITROGLYCERIN SL 0.4 MG TABLET SL PRN (21:04)
[2019-03-11 07:40] LABS: Hemoglobin 9.1 GM/DL (12.0-16.0); Mean Corpuscular HGB Conc 33.7 GM/DL (32-36); Mean Corpuscular Volume 83.3 FL (87-102); Red Blood Count 3.24 MC/CUMM (3.8-5.5); Red Cell Distribution Width 16.7 % (9.3-17.3); White Blood Count 3.5 T/CUMM (4-12)
[2019-03-11 07:48] LABS: Platelet Count 11 T/CUMM (130-400)
[2019-03-11 08:04] LABS: Anisocytosis 1+; Band Neutrophils 4 % (0-10); Lymphocytes 65 % (20-55); Platelet Estimate Decreased; Poikilocytosis 1+; Segmented Neutrophils 21 % (50-85); Total Cells Counted 100
[2019-03-11 08:06] LABS: Atypical Lymphocytes Few
[2019-03-11] MEDS: PANTOPRAZOLE 40 MG TABLET PO SCH (08:35)
[2019-03-11] MEDS: DOCUSATE SODIUM 100 MG CAPSULE PO SCH ×2 (08:35→20:26)
[2019-03-11 08:45] LABS: HDL Cholesterol 37 MG/DL (40-60); Risk Ratio 2.68; Triglycerides 64 MG/DL (2-150); VLDL CHOLESTEROL 12.8 MG/DL
[2019-03-11 08:46] LABS: Troponin I 0.152 NG/ML (0.00-0.045)
[2019-03-11 10:55] LABS: Band Neutrophils 1 % (0-10); Lymphocytes 56 % (20-55); Metamyelocytes 2 %; Myelocytes 3 %; Segmented Neutrophils 31 % (50-85)
[2019-03-11 10:56] LABS: Nucleated Red Blood Cells 2 (0-5); Polychromasia Slight
[2019-03-12 04:54] LABS: Albumin 3.1 G/DL (3.4-5.0); Bilirubin,Total 1.1 MG/DL (0.2-1.0); Osmolality,Calculated 279.5 MOS/KG (273-304); Total Protein 5.7 G/DL (6.4-8.3)
[2019-03-12 05:47] LABS: Basophils % 0.9 % (0.0-0.8); Eosinophils # 0.1 10*3/uL (0.0-0.87); Eosinophils % 2.3 % (0.00-10.9); Hematocrit 27.7 VOL% (35.7-47.0); Hemoglobin 8.8 GM/DL (12.0-16.0); Immature Granulocytes % 11.9 %; Immature Granulocytes Absolute 0.52 #; Lymphocytes # 1.8 10*3/uL (1.4-4.0); Lymphocytes % 41.2 % (21.3-54.2); Mean Corpuscular HGB Conc 31.8 GM/DL (32-36); Mean Corpuscular Volume 89.1 FL (87-102); Monocytes % 16.5 % (1.7-12.7); Neutrophils % 27.2 % (38.7-73.9); Red Blood Count 3.11 MC/CUMM (3.8-5.5); Red Cell Distribution Width 17.4 % (9.3-17.3); White Blood Count 4.4 T/CUMM (4-12)
[2019-03-12 06:01] LABS: Platelet Count 12 T/CUMM (130-400)
[2019-03-12 06:32] LABS: Lymphocytes 54 % (20-55); Metamyelocytes 1 %; Nucleated Red Blood Cells 2 (0-5); Segmented Neutrophils 40 % (50-85); Total Cells Counted 100
[2019-03-12 06:34] LABS: Atypical Lymphocytes Few
[2019-03-12 06:35] LABS: Anisocytosis 1+; Hypochromasia 1+; Microcytosis 1+; Ovalocytes Slight
[2019-03-12 06:36] LABS: Acanthocytes Few; Platelet Estimate Decreased; Tear Drop Cells Slight
[2019-03-12] MEDS: PANTOPRAZOLE 40 MG TABLET PO SCH (08:22)
[2019-03-12] MEDS: DOCUSATE SODIUM 100 MG CAPSULE PO SCH (08:22)
[2019-03-12 18:34] VITALS: BP 134/57
== END 2019-03-12 18:40 | disposition home or self-care (01) | DRG 811 ==
LOC: EDUNIT# → EDBD → N.EDINP 21:15 → N.ED 21:15 → N.3E 23:50 → N.4E 03-11 14:00 → N.3E 03-11 14:07 → N.4E 03-11 14:17
PROVIDERS: ADMIT Family Medicine; ATTEND Family Medicine

== ENCOUNTER 2019-08-30 18:06 | Inpatient (IN) ==
[2019-08-30 19:04] LABS: Basophils # 0.4 10*3/uL (0.0-0.2); Basophils % 2.3 % (0.0-0.8); Eosinophils # 1.1 10*3/uL (0.0-0.87); Eosinophils % 6.2 % (0.00-10.9); Hematocrit 30.7 VOL% (35.7-47.0); Hemoglobin 9.6 GM/DL (12.0-16.0); Immature Granulocytes % 25.7 %; Immature Granulocytes Absolute 4.55 #; Lymphocytes # 1.2 10*3/uL (1.4-4.0); Lymphocytes % 6.8 % (21.3-54.2); Mean Corpuscular HGB Conc 31.3 GM/DL (32-36); Mean Corpuscular Volume 85.8 FL (87-102); Monocytes % 10.2 % (1.7-12.7); NRBC # 0.53 10*3/uL; Neutrophils % 48.8 % (38.7-73.9); Red Blood Count 3.58 MC/CUMM (3.8-5.5); Red Cell Distribution Width 17.1 % (9.3-17.3); White Blood Count 17.7 T/CUMM (4-12)
[2019-08-30 19:16] LABS: INR 0.9; PT Patient Result 10.2 SECS (9.6-12.2); Partial Thromboplastin Time < 21.0 SECS (20.8-36.0)
[2019-08-30 19:19] LABS: Platelet Count 5 T/CUMM (130-400)
[2019-08-30 19:30] LABS: Alanine Aminotransferase 28 U/L (13-56); Albumin 2.8 G/DL (3.4-5.0); Alkaline Phosphatase 62 U/L (45-117); Aspartate Amino Transferase 16 U/L (0-37); Blood Urea Nitrogen 35 MG/DL (7-18); Estimated Glom Filtration Rate 50 ML/MIN; Glucose 156 MG/DL (74-106); Osmolality,Calculated 276.4 MOS/KG (273-304); Total Protein 5.6 G/DL (6.4-8.3); Troponin I 0.019 NG/ML (0.00-0.045)
[2019-08-30 19:32] LABS: Apearance,Urine CLOUDY (Clear); Bilirubin,Urine Negative (Negative); Blood, Urine Large mg/dL (Negative); Glucose,Urine (UA) 50 mg/dL (Negative); Ketones,Urine 5 mg/dL (Negative); Nitrite,Urine Positive (Negative); Protein,Urine 100 MG/DL; RBC,Urine 18095 /HPF (0-4); Urine Color Red (Yellow); Urine Specific Gravity 1.019 (1.001-1.035); Urine Urobilinogen < 2.0 EU/DL (0.2-1.0); WBC,Urine 330 /HPF (0-6)
[2019-08-30] MEDS ORDERED: AMPICILLIN/SULBACTAM 3,000 MG in SODIUM CHLORIDE 0.9% 100 ML IV STA (19:34)
[2019-08-30] MEDS ORDERED: SODIUM CHLORIDE 0.9% 1,000 ML IV PRN (19:34)
[2019-08-30 19:38] LABS: Band Neutrophils 15 % (0-10); Eosinophils 7 % (0-10); Lymphocytes 27 % (20-55); Metamyelocytes 2 %; Myelocytes 1 %; Nucleated Red Blood Cells 3 (0-5); Platelet Estimate Decreased; Segmented Neutrophils 48 % (50-85); Total Cells Counted 100
[2019-08-30 19:39] LABS: Atypical Lymphocytes Few; Smudge Cells Few
[2019-08-30 19:40] LABS: Microcytosis Slight; Polychromasia Slight
[2019-08-30] MEDS ORDERED: ONDANSETRON 4 MG/2 ML VIAL IV PRN (19:40)
[2019-08-30] MEDS ORDERED: NITROGLYCERIN SL 0.4 MG TABLET SL PRN (23:21)
[2019-08-30] MEDS ORDERED: diphenhydrAMINE 50 MG/1 ML VIAL IV ONE (23:24)
[2019-08-30] MEDS ORDERED: diphenhydrAMINE 50 MG/1 ML VIAL ONE (23:28)
[2019-08-31] MEDS ORDERED: diphenhydrAMINE CAP 25 MG CAPSULE PO PRN (00:58)
[2019-08-31] MEDS: DOCUSATE SODIUM 100 MG CAPSULE PO SCH ×2 (01:41→22:03)
[2019-08-31] MEDS: BISACODYL 5 MG TABLET PO SCH ×3 (01:41→22:03)
[2019-08-31] MEDS: AMPICILLIN/SULBACTAM 3,000 MG in SODIUM CHLORIDE 0.9% 100 ML IV SCH ×3 (05:37→22:03)
[2019-08-31 06:02] LABS: Basophils # 0.3 10*3/uL (0.0-0.2); Basophils % 2.2 % (0.0-0.8); Eosinophils # 0.8 10*3/uL (0.0-0.87); Eosinophils % 5.7 % (0.00-10.9); Hematocrit 29.3 VOL% (35.7-47.0); Immature Granulocytes % 27.3 %; Immature Granulocytes Absolute 3.67 #; Lymphocytes # 0.6 10*3/uL (1.4-4.0); Lymphocytes % 4.1 % (21.3-54.2); Mean Corpuscular HGB Conc 30.7 GM/DL (32-36); Mean Corpuscular Volume 85.7 FL (87-102); Monocytes % 10.6 % (1.7-12.7); NRBC # 0.56 10*3/uL; Neutrophils % 50.1 % (38.7-73.9); Red Blood Count 3.42 MC/CUMM (3.8-5.5); Red Cell Distribution Width 17.1 % (9.3-17.3); White Blood Count 13.4 T/CUMM (4-12)
[2019-08-31 06:13] LABS: Platelet Count 6 T/CUMM (130-400)
[2019-08-31 06:27] LABS: Calcium 9.2 MG/DL (8.5-10.1)
[2019-08-31 06:36] LABS: Band Neutrophils 6 % (0-10); Eosinophils 3 % (0-10); Lymphocytes 13 % (20-55); Metamyelocytes 1 %; Myelocytes 6 %; Nucleated Red Blood Cells 5 (0-5); Segmented Neutrophils 68 % (50-85); Total Cells Counted 100
[2019-08-31 06:37] LABS: Anisocytosis 1+; Ovalocytes 1+; Tear Drop Cells Few
[2019-08-31 06:38] LABS: Platelet Estimate Decreased
[2019-08-31] MEDS ORDERED: SODIUM CHLORIDE 0.9% 1,000 ML IV PRN (08:31)
[2019-08-31] MEDS ORDERED: DEXAMETHASONE 10 MG/1 ML VIAL IV ONE (08:34)
[2019-08-31] MEDS: ESCITALOPRAM 10 MG TABLET PO SCH (10:18)
[2019-08-31] MEDS: predniSONE 20 MG TABLET PO SCH (10:18)
[2019-08-31] MEDS: CALCIUM (CARBONATE)/VITAMIN D 600 MG-400 UNIT TABLET PO SCH (10:18)
[2019-08-31] MEDS: traMADol 50 MG TABLET PO PRN (10:21)
[2019-09-01] MEDS: AMPICILLIN/SULBACTAM 3,000 MG in SODIUM CHLORIDE 0.9% 100 ML IV SCH ×3 (06:02→20:46)
[2019-09-01] MEDS: SODIUM CHLORIDE 0.9% 1,000 ML IV SCH ×2 (06:04→20:45)
[2019-09-01] MEDS: CALCIUM (CARBONATE)/VITAMIN D 600 MG-400 UNIT TABLET PO SCH (09:07)
[2019-09-01] MEDS: predniSONE 20 MG TABLET PO SCH (09:07)
[2019-09-01] MEDS: BISACODYL 5 MG TABLET PO SCH ×2 (09:07→20:47)
[2019-09-01] MEDS: ESCITALOPRAM 10 MG TABLET PO SCH (09:08)
[2019-09-01] MEDS: TRIMETHOPRIM 100 MG TABLET PO SCH (09:08)
[2019-09-01] MEDS: traMADol 50 MG TABLET PO PRN ×2 (09:15→22:48)
[2019-09-01 12:27] LABS: Basophils # 0.1 10*3/uL (0.0-0.2); Eosinophils # 0.4 10*3/uL (0.0-0.87); Eosinophils % 3.5 % (0.00-10.9); Hematocrit 20.3 VOL% (35.7-47.0); Immature Granulocytes % 18.6 %; Immature Granulocytes Absolute 2.13 #; Lymphocytes # 0.5 10*3/uL (1.4-4.0); Lymphocytes % 3.9 % (21.3-54.2); Mean Corpuscular HGB Conc 30.5 GM/DL (32-36); Mean Corpuscular Volume 88.3 FL (87-102); Mean Platelet Volume 10.1 FL (9.6-12.0); NRBC # 0.15 10*3/uL; Platelet Count 85 T/CUMM (130-400); White Blood Count 11.4 T/CUMM (4-12)
[2019-09-01 12:31] LABS: Hemoglobin 6.2 GM/DL (12.0-16.0)
[2019-09-01 12:54] LABS: Band Neutrophils 37 % (0-10); Eosinophils 1 % (0-10); Lymphocytes 16 % (20-55); Metamyelocytes 1 %; Myelocytes 4 %; Nucleated Red Blood Cells 4 (0-5); Platelet Estimate Decreased; Segmented Neutrophils 41 % (50-85); Total Cells Counted 100
[2019-09-01 12:55] LABS: Anisocytosis 1+; Poikilocytosis Slight
[2019-09-01] MEDS ORDERED: SODIUM CHLORIDE 0.9% 1,000 ML IV PRN (13:42)
[2019-09-01] MEDS: DOCUSATE SODIUM 100 MG CAPSULE PO SCH (20:47)
[2019-09-02] MEDS: AMPICILLIN/SULBACTAM 3,000 MG in SODIUM CHLORIDE 0.9% 100 ML IV SCH ×3 (05:57→23:07)
[2019-09-02 06:16] LABS: Basophils # 0.1 10*3/uL (0.0-0.2); Eosinophils # 0.5 10*3/uL (0.0-0.87); Immature Granulocytes % 19.4 %; Immature Granulocytes Absolute 1.62 #; Lymphocytes # 0.9 10*3/uL (1.4-4.0); Lymphocytes % 10.2 % (21.3-54.2); Mean Corpuscular HGB Conc 30.6 GM/DL (32-36); Mean Corpuscular Volume 89.1 FL (87-102); Mean Platelet Volume 12.1 FL (9.6-12.0); Monocytes % 8.5 % (1.7-12.7); NRBC # 0.12 10*3/uL; Neutrophils % 54.9 % (38.7-73.9); Platelet Count 55 T/CUMM (130-400); Red Blood Count 2.02 MC/CUMM (3.8-5.5); Red Cell Distribution Width 17.1 % (9.3-17.3); White Blood Count 8.4 T/CUMM (4-12)
[2019-09-02 06:23] LABS: Hemoglobin 5.5 GM/DL (12.0-16.0)
[2019-09-02 06:59] LABS: Band Neutrophils 24 % (0-10); Eosinophils 2 % (0-10); Lymphocytes 27 % (20-55); Metamyelocytes 3 %; Myelocytes 1 %; Nucleated Red Blood Cells 2 (0-5); Platelet Estimate Decreased; Segmented Neutrophils 38 % (50-85); Total Cells Counted 100
[2019-09-02 07:00] LABS: Anisocytosis 2+
[2019-09-02 07:01] LABS: Poikilocytosis 1+; Polychromasia Slight
[2019-09-02 07:02] LABS: Basophilic Stippling Slight
[2019-09-02] MEDS: traMADol 50 MG TABLET PO PRN ×2 (07:27→23:25)
[2019-09-02] MEDS ORDERED: IMMUNE GLOBULIN 10% 20 GM in PREMIX 1 EACH IV ONE (08:30)
[2019-09-02 09:23] LABS: Calcium 8.2 MG/DL (8.5-10.1); Osmolality,Calculated 288.1 MOS/KG (273-304)
[2019-09-02] MEDS: CALCIUM (CARBONATE)/VITAMIN D 600 MG-400 UNIT TABLET PO SCH (10:04)
[2019-09-02] MEDS: predniSONE 20 MG TABLET PO SCH (10:04)
[2019-09-02] MEDS: ESCITALOPRAM 10 MG TABLET PO SCH (10:04)
[2019-09-02] MEDS: BISACODYL 5 MG TABLET PO SCH ×2 (10:04→23:03)
[2019-09-02] MEDS ORDERED: MORPHINE 4 MG/1 ML VIAL IM PRN (10:10)
[2019-09-02] MEDS: SODIUM CHLORIDE 0.9% 1,000 ML IV SCH (10:34)
[2019-09-02] MEDS: MORPHINE 4 MG/1 ML VIAL IV PRN (10:35)
[2019-09-02] MEDS: TRIMETHOPRIM 100 MG TABLET PO SCH (10:38)
[2019-09-02] MEDS ORDERED: MAGNESIUM SULF RIDER 4 GM in PREMIX 1 EACH IV PRN (11:12)
[2019-09-02] MEDS ORDERED: MAGNESIUM SULF RIDER 2 GM in PREMIX 1 EACH IV PRN (11:12)
[2019-09-02] MEDS ORDERED: POTASSIUM CHLORIDE 20 MEQ TABLET PO ONE (12:30)
[2019-09-02] MEDS ORDERED: MAGNESIUM OXIDE 400 MG TABLET PO ONE (16:24)
[2019-09-02] MEDS: METOPROLOL TARTRATE 25 MG TABLET PO SCH ×2 (16:58→23:04)
[2019-09-02] MEDS: DOCUSATE SODIUM 100 MG CAPSULE PO SCH (23:03)
[2019-09-03] MEDS: SODIUM CHLORIDE 0.9% 1,000 ML IV SCH ×2 (03:15→12:56)
[2019-09-03 05:34] LABS: Calcium 8.9 MG/DL (8.5-10.1); Osmolality,Calculated 278.7 MOS/KG (273-304)
[2019-09-03] MEDS: traMADol 50 MG TABLET PO PRN ×2 (06:31→23:06)
[2019-09-03] MEDS: MORPHINE 4 MG/1 ML VIAL IV PRN (07:47)
[2019-09-03 08:56] LABS: Basophils # 0.2 10*3/uL (0.0-0.2); Eosinophils # 0.6 10*3/uL (0.0-0.87); Eosinophils % 7.1 % (0.00-10.9); Immature Granulocytes % 20.2 %; Lymphocytes % 11.7 % (21.3-54.2); Mean Corpuscular HGB Conc 32.3 GM/DL (32-36); Mean Corpuscular Volume 88.6 FL (87-102); Mean Platelet Volume 8.8 FL (9.6-12.0); Monocytes % 10.4 % (1.7-12.7); NRBC # 0.13 10*3/uL; Neutrophils % 48.6 % (38.7-73.9); Red Cell Distribution Width 15.2 % (9.3-17.3); White Blood Count 8.9 T/CUMM (4-12)
[2019-09-03 09:03] LABS: Platelet Count 32 T/CUMM (130-400)
[2019-09-03] MEDS: BISACODYL 5 MG TABLET PO SCH ×2 (10:06→22:20)
[2019-09-03] MEDS: TRIMETHOPRIM 100 MG TABLET PO SCH (10:06)
[2019-09-03] MEDS: CALCIUM (CARBONATE)/VITAMIN D 600 MG-400 UNIT TABLET PO SCH (10:06)
[2019-09-03] MEDS: predniSONE 20 MG TABLET PO SCH (10:06)
[2019-09-03] MEDS: ESCITALOPRAM 10 MG TABLET PO SCH (10:06)
[2019-09-03] MEDS: METOPROLOL TARTRATE 25 MG TABLET PO SCH ×2 (10:06→22:20)
[2019-09-03] MEDS: AMPICILLIN/SULBACTAM 3,000 MG in SODIUM CHLORIDE 0.9% 100 ML IV SCH ×2 (10:06→18:10)
[2019-09-03 10:21] LABS: Anisocytosis 1+; Band Neutrophils 26 % (0-10); Eosinophils 4 % (0-10); Lymphocytes 21 % (20-55); Metamyelocytes 6 %; Myelocytes 13 %; Nucleated Red Blood Cells 3 (0-5); Platelet Estimate Decreased; Segmented Neutrophils 30 % (50-85); Total Cells Counted 100
[2019-09-03] MEDS ORDERED: MAGNESIUM OXIDE 400 MG TABLET PO ONE (13:48)
[2019-09-03 16:25] LABS: Basophils # 0.1 10*3/uL (0.0-0.2); Basophils % 1.7 % (0.0-0.8); Eosinophils # 0.6 10*3/uL (0.0-0.87); Eosinophils % 6.8 % (0.00-10.9); Hematocrit 29.9 VOL% (35.7-47.0); Hemoglobin 9.7 GM/DL (12.0-16.0); Immature Granulocytes % 22.1 %; Lymphocytes # 0.4 10*3/uL (1.4-4.0); Lymphocytes % 5.3 % (21.3-54.2); Mean Corpuscular HGB Conc 32.4 GM/DL (32-36); Mean Corpuscular Volume 90.1 FL (87-102); Mean Platelet Volume 9.4 FL (9.6-12.0); Monocytes % 9.1 % (1.7-12.7); NRBC # 0.12 10*3/uL; Red Blood Count 3.32 MC/CUMM (3.8-5.5); Red Cell Distribution Width 15.4 % (9.3-17.3); White Blood Count 8.1 T/CUMM (4-12)
[2019-09-03 16:28] LABS: Platelet Count 27 T/CUMM (130-400)
[2019-09-03 16:37] LABS: PT Patient Result 10.5 SECS (9.6-12.2); Partial Thromboplastin Time 22.2 SECS (20.8-36.0)
[2019-09-03 16:55] LABS: Albumin 2.4 G/DL (3.4-5.0); Bilirubin,Total 0.8 MG/DL (0.2-1.0); Calcium 8.7 MG/DL (8.5-10.1); Total Protein 5.9 G/DL (6.4-8.3)
[2019-09-03 17:40] LABS: Band Neutrophils 12 % (0-10); Eosinophils 5 % (0-10); Lymphocytes 15 % (20-55); Metamyelocytes 9 %; Myelocytes 5 %; Nucleated Red Blood Cells 1 (0-5); Segmented Neutrophils 47 % (50-85); Total Cells Counted 100
[2019-09-03 17:41] LABS: Platelet Estimate Decreased
[2019-09-03 17:42] LABS: Atypical Lymphocytes Few
[2019-09-03 18:56] LABS: Apearance,Urine CLOUDY (Clear); Bilirubin,Urine Negative (Negative); Blood, Urine Large mg/dL (Negative); Glucose,Urine (UA) >=500 mg/dL (Negative); Ketones,Urine Negative (Negative); Mucus,Urine Occasional /LPF (Occasional); Nitrite,Urine Negative (Negative); Protein,Urine 30 MG/DL; RBC,Urine 79 /HPF (0-4); Squamous Epithelial Cell,Urine Occasional /HPF (0-10); Urine Color Yellow (Yellow); Urine Specific Gravity 1.007 (1.001-1.035); Urine Urobilinogen < 2.0 EU/DL (0.2-1.0); WBC,Urine 222 /HPF (0-6)
[2019-09-03] MEDS: DOCUSATE SODIUM 100 MG CAPSULE PO SCH (22:20)
[2019-09-04] MEDS: AMPICILLIN/SULBACTAM 3,000 MG in SODIUM CHLORIDE 0.9% 100 ML IV SCH ×3 (01:34→16:20)
[2019-09-04] MEDS: SODIUM CHLORIDE 0.9% 1,000 ML IV SCH ×2 (03:44→15:16)
[2019-09-04 05:58] LABS: Basophils # 0.1 10*3/uL (0.0-0.2); Basophils % 1.3 % (0.0-0.8); Eosinophils # 0.3 10*3/uL (0.0-0.87); Eosinophils % 6.9 % (0.00-10.9); Hematocrit 26.5 VOL% (35.7-47.0); Hemoglobin 8.5 GM/DL (12.0-16.0); Immature Granulocytes % 20.4 %; Immature Granulocytes Absolute 0.94 #; Lymphocytes # 0.6 10*3/uL (1.4-4.0); Lymphocytes % 11.9 % (21.3-54.2); Mean Corpuscular HGB Conc 32.1 GM/DL (32-36); Mean Corpuscular Volume 89.8 FL (87-102); Monocytes % 10.2 % (1.7-12.7); NRBC # 0.07 10*3/uL; Neutrophils % 49.3 % (38.7-73.9); Red Blood Count 2.95 MC/CUMM (3.8-5.5); Red Cell Distribution Width 15.6 % (9.3-17.3); White Blood Count 4.6 T/CUMM (4-12)
[2019-09-04 06:13] LABS: Platelet Count 23 T/CUMM (130-400)
[2019-09-04 06:56] LABS: Band Neutrophils 12 % (0-10); Eosinophils 2 % (0-10); Lymphocytes 27 % (20-55); Metamyelocytes 1 %; Myelocytes 5 %; Nucleated Red Blood Cells 3 (0-5); Segmented Neutrophils 48 % (50-85); Total Cells Counted 100
[2019-09-04 06:58] LABS: Atypical Lymphocytes Few; Hypochromasia Slight; Microcytosis Slight; Ovalocytes Slight
[2019-09-04 06:59] LABS: Platelet Estimate Decreased
[2019-09-04] MEDS: ESCITALOPRAM 10 MG TABLET PO SCH (09:33)
[2019-09-04] MEDS: predniSONE 20 MG TABLET PO SCH (09:33)
[2019-09-04] MEDS: CALCIUM (CARBONATE)/VITAMIN D 600 MG-400 UNIT TABLET PO SCH (09:33)
[2019-09-04] MEDS: BISACODYL 5 MG TABLET PO SCH ×2 (09:33→21:52)
[2019-09-04] MEDS: traMADol 50 MG TABLET PO PRN (09:33)
[2019-09-04] MEDS: METOPROLOL TARTRATE 25 MG TABLET PO SCH ×2 (09:35→21:52)
[2019-09-04] MEDS: TRIMETHOPRIM 100 MG TABLET PO SCH (09:42)
[2019-09-04] MEDS: MORPHINE 4 MG/1 ML VIAL IV PRN (11:07)
[2019-09-04] MEDS ORDERED: romiPLOStim 125 MCG VIAL SUBCUT ONE (11:30)
[2019-09-04] MEDS: DOCUSATE SODIUM 100 MG CAPSULE PO SCH (21:52)
[2019-09-05] MEDS: AMPICILLIN/SULBACTAM 3,000 MG in SODIUM CHLORIDE 0.9% 100 ML IV SCH ×2 (01:49→08:45)
[2019-09-05] MEDS: MORPHINE 4 MG/1 ML VIAL IV PRN ×4 (02:22→14:19)
[2019-09-05] MEDS: ESCITALOPRAM 10 MG TABLET PO SCH (08:36)
[2019-09-05] MEDS: CALCIUM (CARBONATE)/VITAMIN D 600 MG-400 UNIT TABLET PO SCH (08:36)
[2019-09-05] MEDS: BISACODYL 5 MG TABLET PO SCH (08:36)
[2019-09-05] MEDS: METOPROLOL TARTRATE 25 MG TABLET PO SCH (08:37)
[2019-09-05] MEDS: predniSONE 20 MG TABLET PO SCH (08:37)
[2019-09-05] MEDS: TRIMETHOPRIM 100 MG TABLET PO SCH (08:39)
[2019-09-05] MEDS: SODIUM CHLORIDE 0.9% 1,000 ML IV SCH (08:44)
[2019-09-05] MEDS: traMADol 50 MG TABLET PO PRN (09:47)
[2019-09-05] MEDS ORDERED: MORPHINE 4 MG/1 ML VIAL ONE (11:32)
[2019-09-05 13:12] VITALS: BP 160/62
== END 2019-09-05 15:09 | disposition hospice, home (50) | DRG 812 ==
LOC: EDUNIT# → N.EDINP 18:06 → N.ED 18:06 → N.5E 23:04
PROVIDERS: ADMIT Family Medicine; ATTEND Family Medicine